=== PATIENT | male | born 1965 | race Caucasian/White ===

== ENCOUNTER 2019-03-07 08:00 | Inpatient (IN) | payer BC ==
[~2019-03-07] VITALS: Ht 172.7 cm; Wt 90.4 kg
[2019-03-07] MEDS ORDERED: DOXA1TAB41 PO (08:08)
[2019-03-07] MEDS ORDERED: FLUO20CA19 (08:08)
[2019-03-07] MEDS ORDERED: ALPR0.25 (08:08)
[2019-03-07] MEDS ORDERED: NS 1,000 ML IV SCH (08:18)
[2019-03-07] MEDS ORDERED: MORPHINE 4 MG/ML 1ML VIAL/SYRINGE (J2270) IV ONE ×3 (08:30→11:45)
[2019-03-07] MEDS ORDERED: ONDANSETRON 4MG/2ML VIAL (J2405) IV ONE ×2 (08:30→09:30)
[2019-03-07 08:38] LABS: BASO % 0.3 % (0.0-1.0); EOS # 0.1 10^3/uL (0.0-0.5); EOS % 0.8 % (0.0-3.0); HEMATOCRIT 44.6 % (42.0-52.0); HEMOGLOBIN 14.7 g/dl (13.5-17.5); LYMPH # 1.2 10^3/uL (1.5-5.0); LYMPH % 12.8 % (24.0-44.0); MEAN CORPUSCULAR HEMOGLOBIN 31.7 pg (27.0-33.0); MEAN CORPUSCULAR VOLUME 96.3 fl (80.0-96.0); MONO # 0.6 10^3/uL (0.0-0.8); MONO % 6.8 % (0.0-5.0); NEUTROPHILS # 7.2 10^3/uL (1.5-8.5); PLATELET COUNT, AUTOMATED 211 10^3/uL (150-450); RED BLOOD COUNT 4.63 10^6/uL (4.30-6.10); WHITE BLOOD COUNT 9.1 10^3/uL (4.0-10.0)
[2019-03-07] MEDS: GASTROGRAFIN SOLUTION 30ML PO SCH ×2 (09:22→09:47)
[2019-03-07 09:31] LABS: ALBUMIN 3.5 GM/DL (3.2-5.2); ALT/SGPT 21 U/L (12-78); BILIRUBIN,DIRECT 0.2 MG/DL (0.0-0.2); BLOOD UREA NITROGEN 14 MG/DL (7-18); CALCIUM LEVEL 8.6 MG/DL (8.5-10.1); CARBON DIOXIDE LEVEL 27 MEQ/L (21-32); CHLORIDE LEVEL 104 MEQ/L (98-107); CREATININE FOR GFR 0.99 MG/DL (0.70-1.30); GLOMERULAR FILTRATION RATE > 60.0 (>56); GLUCOSE, FASTING 123 MG/DL (70-100); LIPASE 87 U/L (73-393); POTASSIUM SERUM 3.7 MEQ/L (3.5-5.1); SODIUM LEVEL 139 MEQ/L (136-145); TOTAL PROTEIN 7.3 GM/DL (6.4-8.2)
[2019-03-07] MEDS ORDERED: ISOVUE-370 76% 100ML VIAL (Q9967) As Ordered ONE (10:17)
--- NOTE | 2019-03-07 11:13 | REP ---
CT ABDOMEN AND PELVIS WITH ORAL AND IV CONTRAST: TECHNIQUE: Axial contrast enhanced images from the lung bases to the pubic symphysis using 100 mL Isovue 370 intravenous contrast material with multiplanar reformations. COMPARISON: 02/11/2019 [facility]. Mild atelectatic changes are seen in the visualized lung bases. There is mild curvature of the thoracolumbar spine, convex to the right in the thoracic region and convex to the left in the lumbar region. The liver, spleen, adrenals, pancreas and kidneys appear unremarkable. There is no hydronephrosis. Gallbladder is grossly unremarkable. There is no abdominal aortic aneurysm. No adenopathy is seen. There is no free air. There is trace scattered free fluid. There is segmental thickening of the sigmoid colon. There is surrounding streaky inflammatory change. Findings are consistent with worsening sigmoid diverticulitis. The more proximal colon is moderately dilated containing air and fluid suggesting that the narrowed inflamed segment of the sigmoid is causing a partial obstruction. Small umbilical contains fat. Urinary bladder is very mildly distended and not well evaluated. There are degenerative changes of the spine. IMPRESSION: Sigmoid diverticulitis appears to have worsened compared to the prior CT 02/11/2019. No free air. Trace scattered free fluid. The colon is moderately dilated proximal to the thickened inflamed segment of sigmoid colon. Findings are compatible with likely partial obstruction at the level of the sigmoid colon. Followup CT or colonoscopy after treatment to insure that there is no underlying neoplastic pathology. Electronically Signed by Mehdi Ronquillo MD 03/08/2019 04:06 P
[2019-03-07] MEDS ORDERED: ERTAPENEM SODIUM 1 GM in NS MINI-BAG PLUS 50 ML IV ONE (11:30)
[2019-03-07] MEDS ORDERED: CENTTAB16 PO (11:45)
[2019-03-07] MEDS ORDERED: FLUO20CA19 PO (11:45)
[2019-03-07] MEDS ORDERED: DEXTROSE 50% 50 ML SYRINGE IV PRN (12:00)
[2019-03-07] MEDS ORDERED: GLUCAGON FOR INJ 1 MG VIAL (J1610) SC PRN (12:00)
[2019-03-07] MEDS ORDERED: NS 1,000 ML IV ONE ×2 (12:00→13:00)
[2019-03-07] MEDS ORDERED: GLUCOSE 4 GM CHEW TABLET PO PRN (12:00)
[2019-03-07 12:45] VITALS: BP 122/68
[2019-03-07] MEDS ORDERED: PERCOCET 5MG/325MG TAB PO PRN (12:45)
[2019-03-07 14:30] VITALS: BP 120/77
[2019-03-07] MEDS: D5W/0.45% SODIUM CHLORIDE 1,000 ML IV SCH ×2 (14:40→22:18)
[2019-03-07] MEDS: PIPERACILLIN/TAZOBACTAM SOD 4.5 GM in D5W MINI-BAG PLUS 50 ML IV SCH (17:47)
[2019-03-07] MEDS: PERCOCET 5MG/325MG TAB PO PRN ×2 (17:48→22:11)
[2019-03-07] MEDS: MORPHINE 4 MG/ML 1ML VIAL/SYRINGE (J2270) IV PRN (19:21)
[2019-03-07 22:00] VITALS: BP 124/78
[2019-03-08] MEDS: PIPERACILLIN/TAZOBACTAM SOD 4.5 GM in D5W MINI-BAG PLUS 50 ML IV SCH ×3 (02:18→17:54)
[2019-03-08] MEDS: PERCOCET 5MG/325MG TAB PO PRN ×4 (02:19→20:23)
[2019-03-08 06:00] VITALS: BP 114/77
[2019-03-08] MEDS: D5W/0.45% SODIUM CHLORIDE 1,000 ML IV SCH (07:15)
[2019-03-08 07:57] LABS: BASO % 0.2 % (0.0-1.0); EOS # 0.1 10^3/uL (0.0-0.5); EOS % 0.6 % (0.0-3.0); HEMATOCRIT 38.5 % (42.0-52.0); LYMPH # 0.7 10^3/uL (1.5-5.0); LYMPH % 7.3 % (24.0-44.0); MEAN CORPUSCULAR HEMOGLOBIN 31.3 pg (27.0-33.0); MEAN CORPUSCULAR HGB CONC 32.2 g/dl (32.0-36.5); MEAN CORPUSCULAR VOLUME 97.2 fl (80.0-96.0); MONO # 0.6 10^3/uL (0.0-0.8); MONO % 6.5 % (0.0-5.0); NEUTROPHILS % 85.1 % (36.0-66.0); PLATELET COUNT, AUTOMATED 198 10^3/uL (150-450); RED BLOOD COUNT 3.96 10^6/uL (4.30-6.10); WHITE BLOOD COUNT 9.4 10^3/uL (4.0-10.0)
[2019-03-08 08:10] LABS: HEMOGLOBIN 12.4 g/dl (13.5-17.5)
[2019-03-08 08:25] LABS: ALBUMIN 2.7 GM/DL (3.2-5.2); ALT/SGPT 13 U/L (12-78); BILIRUBIN,TOTAL 0.6 MG/DL (0.2-1.0); BLOOD UREA NITROGEN 12 MG/DL (7-18); CALCIUM LEVEL 7.8 MG/DL (8.5-10.1); CARBON DIOXIDE LEVEL 26 MEQ/L (21-32); CHLORIDE LEVEL 109 MEQ/L (98-107); CREATININE FOR GFR 0.85 MG/DL (0.70-1.30); GLOMERULAR FILTRATION RATE > 60.0 (>56); GLUCOSE, FASTING 147 MG/DL (70-100); POTASSIUM SERUM 3.3 MEQ/L (3.5-5.1); SODIUM LEVEL 140 MEQ/L (136-145); TOTAL PROTEIN 6.5 GM/DL (6.4-8.2)
[2019-03-08] MEDS ORDERED: ONDANSETRON 4MG/2ML VIAL (J2405) As Ordered ONE (09:43)
[2019-03-08] MEDS: FLUoxetine 20 MG CAP PO SCH (09:45)
[2019-03-08] MEDS: ONDANSETRON 4MG/2ML VIAL (J2405) IV SCH ×3 (09:45→22:12)
--- NOTE | 2019-03-08 10:03 | HPE ---
DATE OF ADMISSION: 03/07/2019 PRIMARY CARE PHYSICIAN: Rubin Pedroza MD CHIEF COMPLAINT: Abdominal pain, nausea without vomiting. HISTORY OF PRESENT ILLNESS: This is a 53-year-old male with a history of benign prostatic hypertrophy (BPH), impaired glucose, hypercholesterolemia, had abdominal pain six weeks ago, evaluated with a CT of the abdomen which showed early diverticulitis who was sent home with no antibiotics, presents today with a feeling of incomplete evacuation and no bowel movement since Thursday. The patient has had nausea, dry retching at home and abdominal pain described as very sharp and burning sensation around the belly button and bilateral lower quadrants left greater than the right, for the past few days since Thursday. The patient has been dry retching without fever, but complained of chills. Describes this as on and off, better when he lays on the right side, comes in waves and goes away. He has not taken Tylenol or NSAIDs for the pain. No bowel movement. Complains of some gurgling sensation and 8/10 pain when its the worst. The patient was able to keep food down despite nausea and has been eating applesauce, yogurt, turkey sandwich and chicken noodle soup for the past few days. He has tried Milk of Magnesia with no luck and even an enema at home. The patient presents with intractable pain, was found to have sigmoid diverticulitis, hospitalist was asked to admit. The patient has not had a colonoscopy in the past. Denies bright red blood per rectum, melena, black tarry stools, coffee ground emesis, no other issues at home. Denies any weight loss, fever, cough, shortness of breath, palpitations, lightheadedness, upper or lower extremity weakness, upper respiratory infections, nasal congestion, ear change or eye changes. PAST MEDICAL HISTORY: Impaired glucose tolerance. Enlarged prostate. Hypercholesterolemia. Early diverticulitis diagnosed six weeks ago. PAST SURGICAL HISTORY: None. ALLERGIES: No known drug allergies. SOCIAL HISTORY: Lives with a partner. Drinks white wine nightly. Denies any cigarette use. Has his mother and father living with him. He takes care of them. 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 FAMILY HISTORY: Father age 79 with diverticulitis, pacer and prostate issues. Mother age 77 with hip replacement, revision times two and complications of hip replacement that is ongoing. REVIEW OF SYSTEMS: As per HPI. 12 point system otherwise negative. PHYSICAL EXAMINATION: Temperature 97, pulse 94, respiratory rate 20, blood pressure 137/90, 97% on room air. Generally, patient is awake, alert oriented times three, answering questions appropriately. Anicteric sclera, no jaundice. Tongue is midline. Moist mucous membranes. No cervical lymphadenopathy, thyromegaly or jugular venous distention (JVD). Lungs are clear to auscultation. No wheezing, rales or rhonchi. Heart S1, S2 sinus rhythm. No murmurs, rubs or gallops Abdomen: Distended, tender in the bilateral lower quadrant, left greater than the right. No rebound or guarding. Hyperactive bowel sounds. Tympanitic on percussion. Extremities: No cyanosis, clubbing or pitting edema. LABORATORY DATA: White count 9.1, hemoglobin 14, hematocrit 44, platelet count 211, 79% neutrophils, Sodium 139, potassium 3.7, chloride 104, bicarb 27, BUN 14, creatinine 0.99, glucose of 123, total bilirubin 1, direct bilirubin 0.2, AST 16, ALT 21, alkaline phosphatase 55, albumin 3.5, lipase 87. CT of the abdomen and pelvis 03/07/2019 sigmoid diverticulitis, worsened compared to prior CT 02/11. No free air. Trace scattered free fluid. Colon is moderately dilated proximal to thick and inflamed segment of the sigmoid compatible with likely partial obstruction at the level of the sigmoid colon. Followup CT or colonoscopy after treatment to ensure there is no underlying neoplastic pathology. Segmental thickening of the sigmoid colon with streaking inflammatory change compatible with worsening sigmoid diverticulitis. ASSESSMENT/PLAN: This is a 53-year-old male who presented with sigmoid diverticulitis. Active issues are: 1. Sigmoid diverticulitis currently on intravenous Zosyn, nothing by mouth status and IV fluids. Hypoglycemic protocol and D5 half normal saline. May advance diet in the morning to clears and full liquids There are no signs of perforation, as in free air or abscess. Therefore, surgery will not be consulted. It has been explained to him however that he will need a colonoscopy once the acute inflammation has resolved within the next 2-3 weeks. 2. Impaired fasting glucose. Check A1c in the morning. Fasting lipid profile. 3. Deep vein thrombosis (DVT) prophylaxis with compression stockings.
--- NOTE | 2019-03-08 10:05 | IPN ---
DATE: 03/08/2019 PRIMARY CARE PROVIDER: [facility]. Mr. Salazar is seen while rounding for the hospitalist. He was admitted with diverticulitis. He had sudden increase of abdominal pain distention this morning. Said he felt "great" at 4 a.m. and then the pain abruptly distended and uncomfortable. He is nauseated with this. He does not have any urinary retention. He has not had a stool for 5 days. PHYSICAL EXAM: 114/77, afebrile. Heart rate of 65. Lungs: Clear. Heart: Regular rate and rhythm. Abdomen: Soft, distended. Bowel sounds are decreased. Diffusely tender. No costovertebral angle (CVA) tenderness. No peripheral edema. LABS: White count is 9.4, hemoglobin 12.4, platelets 198. Sodium 140, potassium 3.3, BUN 12, creatinine 0.8, glucose 147. CT from admission was reviewed. Apparently had one at [facility] 02/11/2019. Diverticulitis sigmoid region was worse on 03/07/2019 compared to the prior. Dilated colon proximal to the sigmoid consistent with partial obstruction. IMPRESSION: 1. Diverticulitis with suspected bowel obstruction. Planned Stat CT of the abdomen and pelvis has been ordered. IV Zofran has been ordered. IV fluids are going. Continue his Zosyn. Pending on results of my consult might end up needing a surgical consultation. Zofran has been ordered for nausea. 2. Hypokalemia. I have changed his IV fluids. Will offer some supplemental potassium. He is also hypoglycemic. I do not think he needs the dextrose.
[2019-03-08] MEDS: KCL 20MEQ IN 0.45NS 1000ML 1,000 ML IV SCH ×2 (10:33→17:28)
--- NOTE | 2019-03-08 11:04 | REP ---
CT ABDOMEN AND PELVIS WITHOUT CONTRAST: CT abdomen and pelvis performed without IV contrast. Sagittal and coronal reconstruction images are performed. Comparison made with prior studies of 03/07/2019. In the visualized lung bases there is mild atelectatic change with a small right effusion. There is increased distension of small and large bowel compared to the prior study, up to a segment of diffuse thickening of sigmoid colon most consistent with a segment of sigmoid diverticulitis. There is adjacent streaky inflammatory changes in the pericolonic fat. Findings suggest worsening degree of bowel obstruction at the level of the thickened sigmoid colon. Retained oral contrast is seen throughout the colon. No free air is seen. There is mild scattered free fluid. Liver, spleen, adrenals, pancreas, and kidneys are again grossly unremarkable. There is no hydronephrosis or adenopathy. Urinary bladder is mildly distended with contrast. IMPRESSION: Increased degree of bowel obstruction at the level of the thickened sigmoid colon as discussed in detail above. Mild scattered free fluid with no free air. Electronically Signed by Mehdi Ronquillo MD 03/08/2019 04:04 P
[2019-03-08] MEDS: MORPHINE 4 MG/ML 1ML VIAL/SYRINGE (J2270) IV PRN ×4 (11:28→21:22)
[2019-03-08 14:00] VITALS: BP 133/86
[2019-03-08 20:00] VITALS: BP 125/88
[2019-03-08] MEDS: KETOROLAC 30 MG/ML VIAL (J1885) IV SCH (21:00)
[2019-03-08] MEDS: PANTOPRAZOLE 40MG INJ (PROTONIX) (C9113) IV SCH (21:21)
--- NOTE | 2019-03-08 22:20 | CR ---
DATE OF CONSULTATION: 03/08/2019 REASON FOR CONSULTATION: Sigmoid colon obstruction. HISTORY OF THE PRESENT ILLNESS: The patient is a 53-year-old man who was admitted on 03/07/[address] Hendrix of the hospitalist service. The patient had presented to the emergency department at 8 o'clock in the morning on the . He reports that about 2 months ago he had developed some bowel habit changes with decreased bowel movements. He apparently had some abdominal discomfort develop with this, and he was seen and had a CT scan of the abdomen and pelvis obtained, which he reports that was interpreted as showing early diverticulitis. This scan was done at [facility]. His symptoms resolved without any treatment. The patient reports that his last bowel movement was on Friday, March 01, 2019. Since then, he had developed some the feeling of abdominal fullness with some nausea. He had some abdominal discomfort, which tended to come in waves as a crampy sensation. He had some retching and dry heaves develop. He had been eating some food despite his nausea. He had tried some milk of magnesia and prune juice and even an enema at home prior to presenting to the emergency department without any success. In the emergency department, he was found to have a somewhat distended abdomen with some tenderness in the lower quadrants. A CT scan of the abdomen and pelvis was obtained, which showed an appearance consistent with sigmoid diverticulitis with thickening of the sigmoid colon with some surrounding streaky inflammatory change. There was some moderate dilation of the colon. He was admitted to the hospital. He was initially placed on a nothing by mouth diet but was allowed some sips of liquids or ice chips. He was given oral pain medications as well as IV morphine. Today, he had complained of increasing abdominal distension with some pain. He had some nausea but no vomiting. A repeat CT scan was obtained, which showed increased distension of the small and large bowel. The contrast given orally for his study on the , which had been largely within the small bowel had all passed into the colon. There was no free air with a small amount of free fluid. I was asked to evaluate the patient regarding management of his apparent colonic obstruction. MEDICATIONS: The patient's usual medications include doxazosin 3 mg by mouth daily, fluoxetine 20 mg by mouth daily, and a daily Centrum Silver vitamin tablet. ALLERGIES: The patient denies any known drug allergies. SURGICAL HISTORY: Negative. MEDICAL HISTORY: The patient has been diagnosed with benign prostatic hyperplasia. He has a history of hypercholesterolemia. He has had some impairment of his glucose metabolism. SOCIAL HISTORY: The patient apparently lives with a partner. He has nightly wine, but denies any tobacco use. FAMILY HISTORY: The patient's father has had diverticulitis and cardiac issues, and the mother has had osteoarthritis with several joint replacement surgeries. REVIEW OF SYSTEMS: The patient denies any history of chest pain or palpitations or cardiac disease. He has no cough, wheezing or sputum production. He denies any dysuria or hematuria or renal stones. He has had no melena or hematochezia. He has never had a colonoscopy performed. He denies any significant bone or joint issues. He has had no history of deep vein thrombosis (DVT) or pulmonary embolus. PHYSICAL EXAMINATION: The patient is lying quietly on the hospital bed. His most recent vital signs show a temperature of 97.5. His pulse is 72, respirations of 20 and a blood pressure of 133/86. The patient is alert and oriented. He is not in obvious pain at this time. Skin: Is warm and dry. Sclerae are anicteric. Neck is supple without mass or bruit. Heart: Exam shows a regular rate and rhythm at about 70. The lungs are clear to auscultation bilaterally. The abdomen is quite distended. He has some tinkly bowel sounds, particularly across the upper quadrants with the lower quadrants being quieter. There is tympany to percussion across the upper abdomen. There is no tenderness to percussion. Palpation reveals the abdomen to be full and moderately firm but not rigid throughout. There is no evident umbilical or inguinal hernia. Extremities are without edema. He has intact radial and dorsalis pedis pulses. Laboratory studies show a white count of 9 at the time of admission with a repeat today of 9.4. Today's hemoglobin is 12 with a hematocrit of 38 and a platelet count of 198,000. His differential count today shows 85% neutrophils, 7% lymphocytes and 6% monocytes. Chemistry profile today showed a sodium of 140, potassium 3.3, chloride 109, CO2 of 26, BUN of 12, creatinine 0.8 and a glucose of 147. Liver function tests are normal. Yesterday he had a normal lipase of 87. Urinalysis yesterday was not suggestive of a urinary tract infection. IMAGING STUDIES: I reviewed both the patient's CT scans. Both scans show a segment of the sigmoid colon that appears to have a significantly thickened wall circumferentially. This segment is perhaps 10-12 cm in maximum length. There does seem to be some surrounding mild inflammatory change. He has a moderately distended air and fluid-filled colon all the way from his cecum to the level of his obstruction. The oral contrast given yesterday has now all distributed through his colon. There is also some mild distension with some air and fluid in the mid to distal small bowel. The stomach is empty on the most recent scan. There is no evidence of free air and no significant free fluid. IMPRESSION: 1. Sigmoid colon obstruction with colonic distension. 2. Hypercholesterolemia. 3. Impaired glucose tolerance. 4. Prostatic enlargement. RECOMMENDATIONS: It seems most likely that the patient's problem is related to an obstruction from diverticular disease. However, there are some slight inconsistencies, which leave me a little concerned that we still need at some point to rule out the possibility of an obstructing cancer. Primarily he has complained of changes in his bowel habits rather than abdominal pain as you would normally see in someone with acute diverticulitis. Also, his white blood cell count has not been significantly elevated. But for now if we assume that the obstruction is related to diverticulitis, it is reasonable to hope that this will improve with antibiotic therapy. He is on a broad-spectrum antibiotic with piperacillin-tazobactam. The patient should be kept nothing by mouth completely, and I have recommended to him that he have a nasogastric tube placed for the potential benefit of decreasing the amount of fluid and air that would continue to pass into his colon. I have ordered Protonix to reduce his gastric secretions. I will also order some Toradol routinely in hopes that this will allow him to take less morphine, which would tend to cause some degree of ileus on top of his obstruction. I have encouraged him to be up ambulatory, though he reports that this makes him more uncomfortable, and he is somewhat reluctant to be up and about more. I counseled him that if his colonic distension increases significantly that we will need to intervene to decompress his colon to prevent rupture. The patient appears to understand the situation. He is expressing some reluctance to have the nasogastric tube placed. At the time of this dictation, he was agreeable with the placement of the nasogastric tube. We will see how his condition progresses and hopefully he will have some return of flatus and bowel movements and will be able to decompress his colon spontaneously. JAMIE
[2019-03-09] MEDS: MORPHINE 4 MG/ML 1ML VIAL/SYRINGE (J2270) IV PRN ×2 (01:30→20:44)
[2019-03-09] MEDS: KCL 20MEQ IN 0.45NS 1000ML 1,000 ML IV SCH ×3 (01:42→14:49)
[2019-03-09] MEDS: PIPERACILLIN/TAZOBACTAM SOD 4.5 GM in D5W MINI-BAG PLUS 50 ML IV SCH ×3 (02:24→17:31)
[2019-03-09] MEDS: KETOROLAC 30 MG/ML VIAL (J1885) IV SCH ×4 (03:57→20:00)
[2019-03-09] MEDS: ONDANSETRON 4MG/2ML VIAL (J2405) IV SCH ×4 (03:57→22:00)
[2019-03-09 05:00] VITALS: BP 134/89
[2019-03-09 07:27] LABS: BASO % 0.2 % (0.0-1.0); EOS % 0.3 % (0.0-3.0); HEMATOCRIT 41.6 % (42.0-52.0); HEMOGLOBIN 13.5 g/dl (13.5-17.5); LYMPH % 10.6 % (24.0-44.0); MEAN CORPUSCULAR HEMOGLOBIN 31.7 pg (27.0-33.0); MEAN CORPUSCULAR HGB CONC 32.5 g/dl (32.0-36.5); MEAN CORPUSCULAR VOLUME 97.7 fl (80.0-96.0); MONO # 0.7 10^3/uL (0.0-0.8); MONO % 7.2 % (0.0-5.0); NEUTROPHILS # 7.7 10^3/uL (1.5-8.5); NEUTROPHILS % 81.5 % (36.0-66.0); PLATELET COUNT, AUTOMATED 212 10^3/uL (150-450); RED BLOOD COUNT 4.26 10^6/uL (4.30-6.10); WHITE BLOOD COUNT 9.4 10^3/uL (4.0-10.0)
[2019-03-09 07:52] LABS: ALBUMIN 2.8 GM/DL (3.2-5.2); ALT/SGPT 13 U/L (12-78); BILIRUBIN,TOTAL 0.6 MG/DL (0.2-1.0); BLOOD UREA NITROGEN 18 MG/DL (7-18); CARBON DIOXIDE LEVEL 26 MEQ/L (21-32); CHLORIDE LEVEL 107 MEQ/L (98-107); CREATININE FOR GFR 1.02 MG/DL (0.70-1.30); GLOMERULAR FILTRATION RATE > 60.0 (>56); GLUCOSE, FASTING 115 MG/DL (70-100); POTASSIUM SERUM 3.6 MEQ/L (3.5-5.1); SODIUM LEVEL 138 MEQ/L (136-145); TOTAL PROTEIN 6.8 GM/DL (6.4-8.2)
--- NOTE | 2019-03-09 08:17 | REP ---
Chest x-ray: Single view. History: NG tube placement. Findings: Nasogastric tube has been passed into good position terminating in the gastric fundus. Moderate right convex thoracic scoliosis is again seen. The lungs are exposed at a lesser level of inspiration on the current radiograph. Dilated colonic loops are noted in the upper abdomen. Impression: NG tube in good position. Electronically Signed by Fran Marr MD 03/09/2019 08:09 A
[2019-03-09] MEDS: PANTOPRAZOLE 40MG INJ (PROTONIX) (C9113) IV SCH (09:13)
[2019-03-09] MEDS: FLUoxetine 20 MG CAP PO SCH (09:15)
--- NOTE | 2019-03-09 09:18 | IPN ---
DATE: 03/09/2019 Mic feels markedly better. He had a nasogastric tube placed. This led to some decompression, still no flatus or stool. He was seen by Dr. Marie, appreciate his input. He is concerned about an obstructive cancer versus bowel obstruction from diverticulitis and is following him with us. PHYSICAL EXAMINATION: Vital signs stable, afebrile. Lungs clear. Heart regular rhythm. Abdomen soft, a little less distended than yesterday, but still significant distention. Bowel sounds are present. He is diffusely mildly tender, a little better than yesterday, but still quite tender. LABS: White count 9.4. Electrolytes unremarkable. IMPRESSION: 1. Large bowel obstruction from presumed diverticulitis. Continue with IV antibiotics, nasogastric suctioning and IV fluids. 2. Hypokalemia resolved with changing his IV fluids. 3. History of depression. Stable on his current regimen.
[2019-03-09 13:30] VITALS: BP 128/84
--- NOTE | 2019-03-09 18:02 | IPN ---
DATE: 03/09/2019 HISTORY: The patient was seen in consultation yesterday with a colonic obstruction at the sigmoid level, felt to be related to diverticular disease. He has not had a lot of evidence for a current infection, and so we still must be cautious about the possibility of a malignancy. A nasogastric tube was inserted last night. The patient reports that he feels much better this morning. The nasogastric (NG) tube has had some output. He has not yet passed any flatus or had any stool. Vital signs show that he has been afebrile overnight. His pulse is in the 70s, and his blood pressure is fine. Intake and output show that he had 1500 in yesterday with 600 of urine output recorded out. He had 100 mL in the NG drainage overnight, and there is about 200-300 mL in the canister currently. Physical exam shows that the patient looks fairly comfortable. The abdomen remains distended. Heart exam shows a rate of about 70 that is regular. The lungs are clear. The abdomen is quite protuberant. He does have some tinkly bowel sounds present, similar to last night. The abdomen is moderately firm but without significant tenderness to palpation. Laboratory studies this morning show a white count of 9, hemoglobin of 14, hematocrit 42, and a platelet count of 212,000. Differential count shows 82% neutrophils, 11% lymphocytes, and 7% monocytes. Chemistry profile shows normal electrolytes, BUN, and creatinine with a glucose of 115. Liver function tests are normal. IMPRESSION: The patient feels somewhat better this morning after placement of the NG tube last evening. The NG has not put out a lot of fluid. He has not yet passed any flatus or had any stool, and his abdomen remains quite distended, consistent with a persistent sigmoid colon obstruction. RECOMMENDATIONS: At this point, since he is feeling comfortable and continues to have some bowel sounds without any increase in tenderness, I would recommend that we continue to observe him in hopes that the antibiotics will lead to enough decrease in inflammation that his colon opens up and allows him to decompress. He should remain on his intravenous fluids and his Protonix and antibiotics. I will continue to follow him until we see whether he is going to get better on his own or will require surgery. JAMIE
[2019-03-09 19:59] VITALS: BP 127/80
[2019-03-10] MEDS: PIPERACILLIN/TAZOBACTAM SOD 4.5 GM in D5W MINI-BAG PLUS 50 ML IV SCH ×3 (01:50→17:04)
[2019-03-10] MEDS: KCL 20MEQ IN 0.45NS 1000ML 1,000 ML IV SCH ×4 (01:50→18:05)
[2019-03-10] MEDS: ONDANSETRON 4MG/2ML VIAL (J2405) IV SCH ×4 (03:39→23:31)
[2019-03-10] MEDS: KETOROLAC 30 MG/ML VIAL (J1885) IV SCH ×2 (03:40→09:36)
[2019-03-10 04:00] VITALS: BP 146/77
[2019-03-10 06:34] LABS: BASO % 0.3 % (0.0-1.0); EOS # 0.2 10^3/uL (0.0-0.5); EOS % 1.9 % (0.0-3.0); HEMATOCRIT 40.2 % (42.0-52.0); HEMOGLOBIN 13.1 g/dl (13.5-17.5); LYMPH % 10.9 % (24.0-44.0); MEAN CORPUSCULAR HEMOGLOBIN 31.7 pg (27.0-33.0); MEAN CORPUSCULAR HGB CONC 32.6 g/dl (32.0-36.5); MEAN CORPUSCULAR VOLUME 97.3 fl (80.0-96.0); MONO # 0.6 10^3/uL (0.0-0.8); MONO % 6.8 % (0.0-5.0); NEUTROPHILS % 79.9 % (36.0-66.0); PLATELET COUNT, AUTOMATED 214 10^3/uL (150-450); RED BLOOD COUNT 4.13 10^6/uL (4.30-6.10); WHITE BLOOD COUNT 8.8 10^3/uL (4.0-10.0)
[2019-03-10 07:04] LABS: ALBUMIN 2.8 GM/DL (3.2-5.2); ALT/SGPT 13 U/L (12-78); BILIRUBIN,TOTAL 0.9 MG/DL (0.2-1.0); BLOOD UREA NITROGEN 25 MG/DL (7-18); CALCIUM LEVEL 8.2 MG/DL (8.5-10.1); CARBON DIOXIDE LEVEL 25 MEQ/L (21-32); CHLORIDE LEVEL 105 MEQ/L (98-107); CREATININE FOR GFR 0.99 MG/DL (0.70-1.30); GLOMERULAR FILTRATION RATE > 60.0 (>56); GLUCOSE, FASTING 107 MG/DL (70-100); POTASSIUM SERUM 4.1 MEQ/L (3.5-5.1); SODIUM LEVEL 137 MEQ/L (136-145); TOTAL PROTEIN 6.6 GM/DL (6.4-8.2)
[2019-03-10] MEDS: FLUoxetine 20 MG CAP PO SCH (09:36)
[2019-03-10] MEDS: PANTOPRAZOLE 40MG INJ (PROTONIX) (C9113) IV SCH (09:36)
--- NOTE | 2019-03-10 09:44 | IPN ---
DATE: 03/10/2019 Mic is having some watery stool. He is still distended, still has pain. He had morphine overnight, is discouraged by his weakness and became dyspneic walking. PHYSICAL EXAM: 146/77, afebrile. Lungs clear. Decreased breath sounds bases. Heart regular rhythm. Abdomen is distended, firm. Bowel sounds are present. Unchanged from yesterday. IMPRESSION: 1. Diverticulitis with large bowel obstruction. Continue nasogastric suctioning. Surgery is consulted and following as well. He is having a little diarrhea, so perhaps things are starting to open up some. 2. Shortness of breath. Probably from diaphragmatic crowding from his abdominal distention. His hemoglobin is stable. Ordered incentive spirometry.
[2019-03-10] MEDS ORDERED: KETOROLAC 30 MG/ML VIAL (J1885) IV PRN (10:15)
[2019-03-10] MEDS: DOXAZOSIN MESYLATE 1 MG TAB PO SCH (12:26)
[2019-03-10] MEDS: MORPHINE 4 MG/ML 1ML VIAL/SYRINGE (J2270) IV PRN ×2 (12:47→18:06)
[2019-03-10 15:05] VITALS: BP 148/91
[2019-03-10 15:35] VITALS: BP 143/85
[2019-03-10 22:00] VITALS: BP 152/93
[2019-03-11] MEDS: KCL 20MEQ IN 0.45NS 1000ML 1,000 ML IV SCH ×3 (01:16→13:04)
[2019-03-11] MEDS: PIPERACILLIN/TAZOBACTAM SOD 4.5 GM in D5W MINI-BAG PLUS 50 ML IV SCH ×3 (01:42→17:59)
[2019-03-11] MEDS: MORPHINE 4 MG/ML 1ML VIAL/SYRINGE (J2270) IV PRN (01:43)
[2019-03-11 06:00] VITALS: BP 134/86
[2019-03-11 06:12] LABS: BASO % 0.5 % (0.0-1.0); EOS # 0.2 10^3/uL (0.0-0.5); HEMATOCRIT 37.8 % (42.0-52.0); HEMOGLOBIN 12.1 g/dl (13.5-17.5); LYMPH # 1.2 10^3/uL (1.5-5.0); LYMPH % 16.1 % (24.0-44.0); MEAN CORPUSCULAR HEMOGLOBIN 30.9 pg (27.0-33.0); MEAN CORPUSCULAR VOLUME 96.4 fl (80.0-96.0); MONO # 0.6 10^3/uL (0.0-0.8); MONO % 7.6 % (0.0-5.0); NEUTROPHILS # 5.5 10^3/uL (1.5-8.5); NEUTROPHILS % 72.4 % (36.0-66.0); PLATELET COUNT, AUTOMATED 211 10^3/uL (150-450); RED BLOOD COUNT 3.92 10^6/uL (4.30-6.10); WHITE BLOOD COUNT 7.6 10^3/uL (4.0-10.0)
[2019-03-11 06:36] LABS: ALBUMIN 2.5 GM/DL (3.2-5.2); ALT/SGPT 13 U/L (12-78); BILIRUBIN,TOTAL 0.8 MG/DL (0.2-1.0); BLOOD UREA NITROGEN 20 MG/DL (7-18); CALCIUM LEVEL 7.7 MG/DL (8.5-10.1); CARBON DIOXIDE LEVEL 21 MEQ/L (21-32); CHLORIDE LEVEL 109 MEQ/L (98-107); CREATININE FOR GFR 0.75 MG/DL (0.70-1.30); GLOMERULAR FILTRATION RATE > 60.0 (>56); GLUCOSE, FASTING 79 MG/DL (70-100); POTASSIUM SERUM 3.9 MEQ/L (3.5-5.1); SODIUM LEVEL 139 MEQ/L (136-145); TOTAL PROTEIN 6.4 GM/DL (6.4-8.2)
[2019-03-11] MEDS: ONDANSETRON 4MG/2ML VIAL (J2405) IV SCH ×3 (06:40→16:48)
[2019-03-11] MEDS: PANTOPRAZOLE 40MG INJ (PROTONIX) (C9113) IV SCH (09:17)
[2019-03-11] MEDS: FLUoxetine 20 MG CAP PO SCH (09:18)
[2019-03-11] MEDS: DOXAZOSIN MESYLATE 1 MG TAB PO SCH (09:18)
--- NOTE | 2019-03-11 11:06 | IPN ---
DATE: 03/11/2019 Mic is seen on [facility]. He is passing flatus and having more substance to the diarrhea that he is passing. He feels he is less distended and breathing easier. PHYSICAL EXAMINATION: Afebrile, vital signs stable. Lungs clear. Heart regular rhythm. Abdomen soft, distended, a little less distended, a little less tender. No peripheral edema. LABS: CBC, BMP unremarkable. IMPRESSION: 1. Large bowel obstruction from presumed diverticulitis. Continue nasogastric suctioning. Surgical consultation. Antibiotic therapy. He seems to be making some progress.
[2019-03-11] MEDS ORDERED: LIDOCAINE 1% MDV 20ML VIAL As Ordered ONE (12:33)
[2019-03-11 14:00] VITALS: BP 142/90
[2019-03-11] MEDS: ENOXAPARIN 40 MG/0.4 ML SYRINGE (J1650) SC SCH (16:49)
[2019-03-11] MEDS: SODIUM CHLORIDE 0.9% INJ 10 ML SYR IV SCH (17:59)
[2019-03-11] MEDS: HumaLOG INSULIN (NovoLOG) PER UNIT SC SCH (18:00)
[2019-03-11] MEDS ORDERED: FAT EMULSION IV 20% 500 ML IV SCH (18:00)
[2019-03-11] MEDS ORDERED: AMINO AC/ELECTROLYTE/DEX/CALC 2,000 ML IV SCH (18:00)
--- NOTE | 2019-03-11 21:10 | IPN ---
DATE: 03/10/2019 HISTORY: The patient was admitted on the with evidence for probable sigmoid diverticulitis with colonic obstruction. This became more pronounced on the , and I was consulted to evaluate him. He had become quite distended. A nasogastric tube was placed. The patient reports that this morning he had a loose bowel movement followed by another smaller one. He indicates he has not really passed any flatus yet. He remains quite distended. He has had no nausea or vomiting, and his nasogastric (NG) tube output has been actually relatively limited. Vital signs: Show that he has been afebrile for the past 24 hours. Pulse is in the 70s, and his blood pressure is borderline elevated into the upper 140s to lower 150s systolic. Intake and output show that yesterday he had 2400 in with 1000 out. He had 600 of NG output and 425 mL of urine recorded. PHYSICAL EXAMINATION: The patient is lying quietly on the hospital bed. He has the nasogastric tube in place with a minimal amount of light greenish fluid in the canister. Sclerae are anicteric. Heart exam shows a regular rhythm in the 70s. The lungs are clear anteriorly. The abdomen remains quite distended. He does have some bowel sounds present. There is still some tympany to percussion across the mid upper abdomen. The abdomen remains moderately firm. Laboratory studies today show a white count of 9, hemoglobin 13, hematocrit 40 and a platelet count of 214,000. Chemistries show a sodium of 137, potassium 4.1, chloride 105, CO2 of 25, BUN of 25, creatinine 0.99 and a glucose of 107. Liver function tests are normal. IMPRESSION: Patient has finally had some passage of liquid stool, and this is certainly reassuring. He has not passed any flatus and remains quite distended but is not having any significant abdominal pain other than some fullness. PLAN: The patient was encouraged to be up ambulating. I advised him that I would still give him another couple of days potentially to see if he will resolve his obstruction and decompress without the need for any sort of surgical intervention. We did discuss that if he does not improve soon, we would need to place a peripherally inserted central catheter (PICC) line to begin him on total parenteral nutrition. We will see how things go tonight and decide in the morning if a PICC line is required at that point. JAMIE
[2019-03-11 22:00] VITALS: BP 148/92
[2019-03-12] MEDS: ONDANSETRON 4MG/2ML VIAL (J2405) IV SCH ×5 (00:06→22:00)
[2019-03-12] MEDS: HumaLOG INSULIN (NovoLOG) PER UNIT SC SCH ×4 (00:07→17:31)
[2019-03-12] MEDS: PIPERACILLIN/TAZOBACTAM SOD 4.5 GM in D5W MINI-BAG PLUS 50 ML IV SCH ×3 (02:19→17:31)
[2019-03-12 06:00] VITALS: BP 148/89
[2019-03-12] MEDS: SODIUM CHLORIDE 0.9% INJ 10 ML SYR IV SCH ×2 (06:17→17:32)
--- NOTE | 2019-03-12 07:31 | IPN ---
DATE: 03/11/2019 HISTORY: The patient was first seen by me on March 08 with a sigmoid colon obstruction felt to be secondary to diverticulitis. A nasogastric (NG) tube was placed on the evening of the . The output has generally been fairly limited, although he did have 200 mL out so far today. Yesterday, he did have several liquid bowel movements as well as some flatus. He has remained quite distended, but is not having significant pain. Vital signs show that he has been afebrile over the past 24 hours. His pulse is in the mid 70s and his blood pressure has been acceptable. Intake and output shows that yesterday he had 1850 in with 950 out, 700 of that was urine with 250 of gastric drainage. He did have several bowel movements as noted. He has been voiding well. PHYSICAL EXAMINATION: Shows that the patient is lying quietly in the hospital bed. The nasogastric tube is in place with a small amount of light greenish fluid in the tubing and in the canister. Heart exam shows a regular rhythm and the lungs are clear. The abdomen is quite distended. He does have a few bowel sounds. The abdomen seems to be slightly less firm than it was yesterday at the time of this exam, though it remains quite distended and he has tympany to percussion fairly diffusely. The lower extremities are without any palpable edema. LABORATORY STUDIES: Today, show a white count of 8, hemoglobin 12, hematocrit 38 and a platelet count of 211,000. Differential count shows 72% neutrophils, 16% lymphocytes and 8% monocytes. Chemistry profile shows normal electrolytes with a BUN of 20, creatinine 0.75 and glucose of 79. Total protein is down to 6.4 with an albumin of 2.5. IMPRESSION: The patient remains with a colonic obstruction. He is still quite distended, though he has started to pass some liquid stool and some flatus. He may be a little less firmly distended than he was yesterday. He is not having any significant pain and there is no tenderness on palpation. His white count is remaining normal. PLAN: The patient will have a peripherally inserted central catheter (PICC) line inserted today and I will start him on total parenteral nutrition. I will cut his IV rate back to 75 mL an hour now and this can be stopped once the TPN is started later in the day. I will order a KUB for tomorrow just to assess the degree of distention of his bowel. I have spoken with Dr. 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 I explained to the patient that I would be on vacation and the Dr. Sanders would be assuming his care. I advised him that if he decompresses adequately then we may be able to avoid surgery, but if things do not improve soon it may be necessary to opt in favor of surgery with a colostomy. He appears to understand the situation for now. JAMIE
[2019-03-12] MEDS: ENOXAPARIN 40 MG/0.4 ML SYRINGE (J1650) SC SCH (08:21)
[2019-03-12] MEDS: PANTOPRAZOLE 40MG INJ (PROTONIX) (C9113) IV SCH (08:21)
[2019-03-12] MEDS: FLUoxetine 20 MG CAP PO SCH (08:23)
[2019-03-12] MEDS: DOXAZOSIN MESYLATE 1 MG TAB PO SCH (08:23)
[2019-03-12] MEDS: SODIUM CHLORIDE 0.9% INJ 10 ML SYR IV PRN (08:25)
--- NOTE | 2019-03-12 09:08 | REP ---
PICC line insertion under ultrasound guidance. The procedure was performed by FRANNIE Funez, under the direct supervision of Dr. Marr. The risks and benefits of the procedure were explained to the patient and informed consent was obtained both verbally and written. Directly prior to the start of the procedure, a formal timeout was completed in the procedure room. The right basilic vein was localized using ultrasound guidance. The skin was prepped and draped in the sterile fashion. 2 ml 1% lidocaine 10 mg/ml was used as a local anesthetic. Using ultrasound guidance the right basilic vein was cannulated and a 0.018 guidewire was inserted and advanced to the SVC using fluoroscopic guidance. The needle was removed and a 5.5 Lao dilator and peel-away sheath was inserted over the guidewire. A 5.5 Lao double lumen catheter was cut to the length of 35 cm. The dilator was removed and the catheter was inserted over the guide wire with the tip ending in the SVC. The peel-away sheath was removed and the catheter was flushed with heparinized saline as per hospital protocol. The catheter was affixed to the skin and a sterile dressing was applied. The patient tolerated the procedure well and there were no immediate complications. 0.2 minutes of fluoroscopy time was utilized for this procedure. Some fluoroscopic images are performed with last image hold technology. These images require no additional radiation. Reviewed by FRANNIE Machuca 03/11/2019 05:45 P Electronically Signed by Fran Marr MD 03/12/2019 09:01 A
--- NOTE | 2019-03-12 09:40 | IPN ---
DATE: 03/12/2019 Mic is frustrated. He does not feel like he is making any progress. He is passing some flatus and having diarrheal stools. He wants his nasogastric tube out. This is really only draining a small amount. He wants to know what surgical decisions have been made and he is frustrated over this. 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 PHYSICAL EXAMINATION: Vital signs stable. Afebrile. Abdomen is still distended about the same as yesterday. Bowel sounds are present. Lungs clear. Heart: Regular rhythm. LABS: He declined getting labs drawn today. IMPRESSION: Large bowel obstruction from presumed diverticulitis. The patient is frustrated with his progress. I indicated that at this point he is essentially a surgical patient and they are managing the nasogastric tube and TPN and decisions as far as surgery for the bowel obstruction. I have been in communication with Dr. Sanders who is rounding for surgery today and surgery will be seeing him. The rest of his medical problems are all stable.
--- NOTE | 2019-03-12 11:41 | REP ---
REASON: History of colon obstruction. There is mild to moderate gaseous distension of the colon. There is gas and stool in the rectosigmoid region. The tip of the nasogastric tube is seen in the stomach fundal region. The organ silhouettes are obscured. The osseous structures are within normal limits. IMPRESSION: As above. Electronically Signed by Mingo Kelley DO 03/12/2019 12:15 P
[2019-03-12] MEDS ORDERED: FLEET ENEMA PR ONE (12:00)
[2019-03-12 14:00] VITALS: BP 129/84
[2019-03-12] MEDS ORDERED: FAT EMULSION IV 20% 500 ML IV SCH (18:00)
[2019-03-12] MEDS ORDERED: AMINO AC/ELECTROLYTE/DEX/CALC 2,000 ML IV SCH (18:00)
[2019-03-12 22:00] VITALS: BP 142/90
[2019-03-13] MEDS: HumaLOG INSULIN (NovoLOG) PER UNIT SC SCH ×4 (00:34→17:18)
[2019-03-13] MEDS: PIPERACILLIN/TAZOBACTAM SOD 4.5 GM in D5W MINI-BAG PLUS 50 ML IV SCH ×3 (02:16→17:13)
[2019-03-13] MEDS: SODIUM CHLORIDE 0.9% INJ 10 ML SYR IV PRN (03:33)
[2019-03-13] MEDS: ONDANSETRON 4MG/2ML VIAL (J2405) IV SCH ×4 (03:38→21:05)
[2019-03-13 06:00] VITALS: BP 141/90
[2019-03-13] MEDS: SODIUM CHLORIDE 0.9% INJ 10 ML SYR IV SCH ×2 (06:08→17:13)
[2019-03-13 06:21] LABS: BASO % 0.4 % (0.0-1.0); EOS # 0.2 10^3/uL (0.0-0.5); EOS % 3.8 % (0.0-3.0); HEMATOCRIT 34.9 % (42.0-52.0); HEMOGLOBIN 11.8 g/dl (13.5-17.5); LYMPH # 0.8 10^3/uL (1.5-5.0); LYMPH % 14.6 % (24.0-44.0); MEAN CORPUSCULAR HEMOGLOBIN 31.9 pg (27.0-33.0); MEAN CORPUSCULAR HGB CONC 33.8 g/dl (32.0-36.5); MEAN CORPUSCULAR VOLUME 94.3 fl (80.0-96.0); MONO # 0.5 10^3/uL (0.0-0.8); MONO % 9.7 % (0.0-5.0); NEUTROPHILS # 3.9 10^3/uL (1.5-8.5); PLATELET COUNT, AUTOMATED 214 10^3/uL (150-450); WHITE BLOOD COUNT 5.5 10^3/uL (4.0-10.0)
[2019-03-13 07:03] LABS: ALBUMIN 2.6 GM/DL (3.2-5.2); ALT/SGPT 17 U/L (12-78); BILIRUBIN,TOTAL 0.6 MG/DL (0.2-1.0); BLOOD UREA NITROGEN 10 MG/DL (7-18); CALCIUM LEVEL 8.3 MG/DL (8.5-10.1); CARBON DIOXIDE LEVEL 27 MEQ/L (21-32); CHLORIDE LEVEL 108 MEQ/L (98-107); CREATININE FOR GFR 0.83 MG/DL (0.70-1.30); GLOMERULAR FILTRATION RATE > 60.0 (>56); GLUCOSE, FASTING 163 MG/DL (70-100); POTASSIUM SERUM 2.6 MEQ/L (3.5-5.1); SODIUM LEVEL 143 MEQ/L (136-145); TOTAL PROTEIN 6.3 GM/DL (6.4-8.2)
[2019-03-13] MEDS: KCL 10MEQ/100ML SWI (KRUN) 10 MEQ in IV 1 EA IV SCH ×6 (07:58→15:57)
[2019-03-13] MEDS: FLUoxetine 20 MG CAP PO SCH (09:00)
[2019-03-13] MEDS: PANTOPRAZOLE 40MG INJ (PROTONIX) (C9113) IV SCH (09:20)
[2019-03-13] MEDS: ENOXAPARIN 40 MG/0.4 ML SYRINGE (J1650) SC SCH (09:21)
[2019-03-13 09:23] VITALS: BP 142/91
[2019-03-13] MEDS: DOXAZOSIN MESYLATE 1 MG TAB PO SCH (09:23)
--- NOTE | 2019-03-13 10:53 | IPNPDOC ---
Text Note Date of Service The patient was seen on 03/13/19. NOTE I initially saw Mr. Salazar walking the hallway. He reports feeling more comfo rtable today and he is passing out some small smounts of solid stuff not just liquid, watery stool. Still feels distended but no longer nauseated. In the room he is pleasant and looks comfortable though his abdomen clearly still is distended. On exam, he is comfortable. He has an NGT in place which has not been putting out much the past two days. His lungs sounds clear to auscultation He has regular heart rate and regular rhythm His abdomen remains moderately distended but soft. He is nontender on palpation No extremity edema Impression/Plans colon obstruction at the level of sigmoid colon possibly diverticulitis/stricturing from chronic diverticulosis vs malignancy as he continues to improve, I will continue a daily fleets enema. Will set him up for barium enema tomorrow. D/C NGT I discussed with hm the different clinical scenarios which may need urgernt surgery keshawn if he does not fully recover including diversion (colostomy) resection and colostomy (Sesar) and single stage resection and anastomosis. This will all depend on his clinical improvement or nonimprovement. At this time he feels moderately better and feels he is continuing to get better so does not seem like he will need urgent decompression VS,Abundio, I+O VS, Abundio, I+O Laboratory Tests 03/13/19 05:52 Vital Signs Date Time Temp Pulse Resp B/P (MAP) Pulse Ox O2 Delivery O2 Flow Rate FiO2 03/13/19 09:23 142/91 03/13/19 06:00 98.4 84 18 98 03/12/19 14:00 Room Air I&O- Last 24 Hours up to 6 AM 03/13/19 05:59 Intake Total 620 ml Output Total 900 ml Balance -280 ml CHEYENNE DÍAZ MD Mar 13, 2019 10:53
--- NOTE | 2019-03-13 12:42 | IPN ---
DATE: 03/13/2019 I discussed Mic's case with Dr. Sanders yesterday. He agreed to transfer the patient to the surgical service. He has no medical issues we are currently following. The staff is unaware of this so they contacted me this morning for a potassium of 2.6. I ordered 6 potassium runs. He has followup lab work ordered for tomorrow.
[2019-03-13 14:00] VITALS: BP 145/95
[2019-03-13 14:56] LABS: POTASSIUM SERUM 2.8 MEQ/L (3.5-5.1)
[2019-03-13] MEDS ORDERED: POTASSIUM CHLORIDE IV SCH (18:00)
[2019-03-13] MEDS ORDERED: MAGNESIUM SULFATE IV SCH (18:00)
[2019-03-13] MEDS ORDERED: FAT EMULSION IV 20% 500 ML IV SCH (18:00)
[2019-03-13] MEDS ORDERED: [UNRECOGNIZED DRUG - OTHER] IV SCH (18:00)
[2019-03-13 22:00] VITALS: BP 131/87
[2019-03-14] MEDS: PIPERACILLIN/TAZOBACTAM SOD 4.5 GM in D5W MINI-BAG PLUS 50 ML IV SCH ×3 (01:46→17:50)
[2019-03-14] MEDS: SODIUM CHLORIDE 0.9% INJ 10 ML SYR IV SCH ×2 (05:04→17:51)
[2019-03-14] MEDS: ONDANSETRON 4MG/2ML VIAL (J2405) IV SCH ×4 (05:04→21:33)
[2019-03-14 06:00] VITALS: BP 142/90
[2019-03-14] MEDS: HumaLOG INSULIN (NovoLOG) PER UNIT SC SCH ×5 (06:08→23:57)
[2019-03-14 07:02] LABS: BASO % 0.4 % (0.0-1.0); EOS # 0.3 10^3/uL (0.0-0.5); EOS % 4.6 % (0.0-3.0); HEMATOCRIT 34.8 % (42.0-52.0); HEMOGLOBIN 11.7 g/dl (13.5-17.5); LYMPH % 17.6 % (24.0-44.0); MEAN CORPUSCULAR HEMOGLOBIN 31.5 pg (27.0-33.0); MEAN CORPUSCULAR HGB CONC 33.6 g/dl (32.0-36.5); MEAN CORPUSCULAR VOLUME 93.5 fl (80.0-96.0); MONO # 0.5 10^3/uL (0.0-0.8); MONO % 9.7 % (0.0-5.0); NEUTROPHILS # 3.7 10^3/uL (1.5-8.5); NEUTROPHILS % 67.1 % (36.0-66.0); PLATELET COUNT, AUTOMATED 223 10^3/uL (150-450); RED BLOOD COUNT 3.72 10^6/uL (4.30-6.10); WHITE BLOOD COUNT 5.5 10^3/uL (4.0-10.0)
[2019-03-14 07:32] LABS: ALBUMIN 2.7 GM/DL (3.2-5.2); ALT/SGPT 43 U/L (12-78); BILIRUBIN,TOTAL 0.4 MG/DL (0.2-1.0); BLOOD UREA NITROGEN 9 MG/DL (7-18); CALCIUM LEVEL 8.2 MG/DL (8.5-10.1); CARBON DIOXIDE LEVEL 29 MEQ/L (21-32); CHLORIDE LEVEL 107 MEQ/L (98-107); CREATININE FOR GFR 0.83 MG/DL (0.70-1.30); GLOMERULAR FILTRATION RATE > 60.0 (>56); GLUCOSE, FASTING 119 MG/DL (70-100); MAGNESIUM LEVEL 2.4 MG/DL (1.8-2.4); POTASSIUM SERUM 2.7 MEQ/L (3.5-5.1); SODIUM LEVEL 143 MEQ/L (136-145); TOTAL PROTEIN 6.7 GM/DL (6.4-8.2)
[2019-03-14] MEDS ORDERED: LIQUID POLIBAR PLUS 105% w/v 1900ML BTL As Ordered ONE (08:08)
[2019-03-14] MEDS: PANTOPRAZOLE 40MG INJ (PROTONIX) (C9113) IV SCH (10:04)
[2019-03-14] MEDS: FLUoxetine 20 MG CAP PO SCH (10:06)
[2019-03-14] MEDS: DOXAZOSIN MESYLATE 1 MG TAB PO SCH (10:06)
[2019-03-14] MEDS: ENOXAPARIN 40 MG/0.4 ML SYRINGE (J1650) SC SCH (10:07)
[2019-03-14] MEDS: KCL 10MEQ/100ML SWI (KRUN) 10 MEQ in IV 1 EA IV SCH ×3 (10:07→11:43)
[2019-03-14] MEDS: FLEET ENEMA PR SCH (10:13)
[2019-03-14] MEDS ORDERED: KCL 10MEQ/100ML SWI (KRUN) 10 MEQ in IV 1 EA IV SCH (11:00)
[2019-03-14] MEDS: POTASSIUM CHLORIDE 10 MEQ SR TABLET PO SCH ×2 (11:14→20:48)
[2019-03-14] MEDS ORDERED: KCL 10MEQ/100ML SWI (KRUN) 10 MEQ in IV 1 EA IV ONE (12:30)
--- NOTE | 2019-03-14 13:03 | IPN ---
DATE: 03/14/2019 Mic has been transferred to the surgical service, but the nursing staff still called with hypokalemia. Potassium is 2.7. So, I ordered more potassium runs and asked them to followup with surgery on this.
[2019-03-14 14:00] VITALS: BP 133/90
[2019-03-14] MEDS ORDERED: FAT EMULSION IV 20% 500 ML IV SCH (18:00)
[2019-03-14] MEDS ORDERED: MULTIVITAMIN -ADULT INJECTION 10 ML, CR/CU/SE/MN/ZN INJ 1 ML, POTASSIUM CHLORIDE INJ 40... IV SCH ×4 (18:00)
[2019-03-14 22:00] VITALS: BP 130/91
[2019-03-15] MEDS: PIPERACILLIN/TAZOBACTAM SOD 4.5 GM in D5W MINI-BAG PLUS 50 ML IV SCH ×3 (01:59→17:35)
[2019-03-15] MEDS: ONDANSETRON 4MG/2ML VIAL (J2405) IV SCH ×4 (04:00→21:26)
[2019-03-15 06:00] VITALS: BP 132/89
[2019-03-15] MEDS: HumaLOG INSULIN (NovoLOG) PER UNIT SC SCH ×2 (06:26→12:37)
[2019-03-15] MEDS: SODIUM CHLORIDE 0.9% INJ 10 ML SYR IV SCH ×2 (06:27→17:35)
[2019-03-15] MEDS: FLEET ENEMA PR SCH (09:00)
[2019-03-15 09:08] LABS: BLOOD UREA NITROGEN 12 MG/DL (7-18); CALCIUM LEVEL 8.2 MG/DL (8.5-10.1); CARBON DIOXIDE LEVEL 27 MEQ/L (21-32); CHLORIDE LEVEL 108 MEQ/L (98-107); CREATININE FOR GFR 0.86 MG/DL (0.70-1.30); GLOMERULAR FILTRATION RATE > 60.0 (>56); GLUCOSE, FASTING 120 MG/DL (70-100); POTASSIUM SERUM 3.4 MEQ/L (3.5-5.1); SODIUM LEVEL 142 MEQ/L (136-145)
[2019-03-15] MEDS: PANTOPRAZOLE 40MG INJ (PROTONIX) (C9113) IV SCH (09:44)
[2019-03-15] MEDS: DOXAZOSIN MESYLATE 1 MG TAB PO SCH (09:44)
[2019-03-15] MEDS: ENOXAPARIN 40 MG/0.4 ML SYRINGE (J1650) SC SCH (09:44)
[2019-03-15] MEDS: FLUoxetine 20 MG CAP PO SCH (09:45)
[2019-03-15] MEDS: POTASSIUM CHLORIDE 10 MEQ SR TABLET PO SCH ×2 (09:45→21:25)
[2019-03-15] MEDS: MIRALAX *UNIT DOSE* 17GM PACKET PO SCH ×2 (12:37→21:25)
[2019-03-15 14:00] VITALS: BP 135/82
[2019-03-15 22:00] VITALS: BP 133/83
[2019-03-16] MEDS: PIPERACILLIN/TAZOBACTAM SOD 4.5 GM in D5W MINI-BAG PLUS 50 ML IV SCH ×2 (01:25→08:52)
[2019-03-16] MEDS: ONDANSETRON 4MG/2ML VIAL (J2405) IV SCH ×2 (04:00→09:21)
[2019-03-16] MEDS: SODIUM CHLORIDE 0.9% INJ 10 ML SYR IV SCH (05:42)
[2019-03-16 06:00] VITALS: BP 129/81
[2019-03-16 06:54] LABS: BLOOD UREA NITROGEN 13 MG/DL (7-18); CALCIUM LEVEL 8.3 MG/DL (8.5-10.1); CARBON DIOXIDE LEVEL 25 MEQ/L (21-32); CHLORIDE LEVEL 110 MEQ/L (98-107); CREATININE FOR GFR 0.89 MG/DL (0.70-1.30); GLOMERULAR FILTRATION RATE > 60.0 (>56); GLUCOSE, FASTING 96 MG/DL (70-100); POTASSIUM SERUM 3.6 MEQ/L (3.5-5.1); SODIUM LEVEL 142 MEQ/L (136-145)
[2019-03-16] MEDS: MIRALAX *UNIT DOSE* 17GM PACKET PO SCH (08:51)
[2019-03-16] MEDS: FLUoxetine 20 MG CAP PO SCH (08:51)
[2019-03-16] MEDS: DOXAZOSIN MESYLATE 1 MG TAB PO SCH (08:51)
[2019-03-16] MEDS: ENOXAPARIN 40 MG/0.4 ML SYRINGE (J1650) SC SCH (08:51)
[2019-03-16] MEDS: POTASSIUM CHLORIDE 10 MEQ SR TABLET PO SCH (08:51)
[2019-03-16] MEDS: PANTOPRAZOLE 40MG INJ (PROTONIX) (C9113) IV SCH (08:52)
[2019-03-16] MEDS ORDERED: PEG1POW PO (10:32)
[2019-03-16] MEDS ORDERED: MIRALAX *UNIT DOSE* 17GM PACKET PO ONE (12:00)
--- NOTE | 2019-03-17 13:07 | REP ---
Examination Requested: Limited single contrast barium enema Reason For Exam: Sigmoid colon obstruction The procedure was performed by FRANNIE Funez, under the direct supervision of Dr. Hester. The images were reviewed with Dr. Hester. The pumper brewery film shows no organomegaly, or pathological masses. The intestinal gas pattern is unremarkable. Liquid barium was instilled into the colon and retrograde flow. of the barium air mixture. The colon is normal in position and contour. There is a short segment of mid/distal sigmoid colon that demonstrates mucosal irregularities with submucosal thickening. Colonoscopy is recommended. Impression: 1. There is a short segment of mid/distal sigmoid colon that demonstrates mucosal irregularities with submucosal thickening. Colonoscopy is recommended. 0.9 minutes of fluoroscopy time was utilized for this procedure. Some fluoroscopic images are performed with last image hold technology. These images require no additional radiation. Reviewed by FRANNIE Machuca 03/14/2019 05:47 P Electronically Signed by Mark Hester MD 03/17/2019 12:59 P
== END 2019-03-16 11:57 | disposition home or self-care (01) | DRG 244 ==
LOC: M ED 08:00 → M ED INP 11:51 → M MS4PR 12:45 → M MSPAV 03-10 15:02
PROVIDERS: ADMIT General Practice; ATTEND Surgery
PROC: 02HV33Z Insertion of Infusion Device into Superior Vena Cava, Percutaneous Approach (ICD-10-PCS; principal; 2019-03-11 13:30)
DX: K57.32 Diverticulitis of large intestine without perforation or abscess without bleeding (principal); K56.600 Partial intestinal obstruction, unspecified as to cause; E87.6 Hypokalemia; N40.0 Benign prostatic hyperplasia without lower urinary tract symptoms; E78.00 Pure hypercholesterolemia, unspecified; E74.39 Other disorders of intestinal carbohydrate absorption; F32.9 Major depressive disorder, single episode, unspecified

== ENCOUNTER 2019-04-06 09:29 | Day surgery (SDC) | payer BC ==
[~2019-04-06] VITALS: Ht 172.7 cm; Wt 75.7 kg
[~2019-04-06 09:29] MED LIST: ALPR0.25; CENTTAB16 PO; DOXA1TAB41 PO; FLUO20CA19; FLUO20CA19 PO; NS 1,000 ML IV ONE; PEG1POW PO
[2019-04-06] MEDS ORDERED: propofoL 500 MG/50 ML VIAL As Ordered ONE (10:47)
[2019-04-06] MEDS ORDERED: LIDOCAINE 2% INJ 100 MG/5 ML SDV (FOR ANES.) As Ordered ONE (10:47)
--- NOTE | 2019-04-06 11:41 | ROOR ---
Patient Name: Mic Salazar Procedure Date: 04/06/2019 10:45 AM Date of : 1965 Age: 53 Room: [facility] Gender: Male Note Status: Finalized Procedure: Colonoscopy Indications: Abnormal barium enema, Abnormal CT of the GI tract, Obstipation Providers: Hayes Sanders MD Referring MD: TORIBIO SANDRA MD Requesting Provider: Medicines: Monitored Anesthesia Care Complications: No immediate complications. Procedure: Pre-Anesthesia Assessment: - Prior to the procedure, a History and Physical was performed, and patient medications and allergies were reviewed. The patient is competent. The risks and benefits of the procedure and the sedation options and risks were discussed with the patient. All questions were answered and informed consent was obtained. Patient identification and proposed procedure were verified by the physician, the nurse and the anesthesiologist in the endoscopy suite. Mental Status Examination: alert and oriented. Airway Examination: normal oropharyngeal airway and neck mobility. Respiratory Examination: clear to auscultation. CV Examination: normal. Prophylactic Antibiotics: The patient does not require prophylactic antibiotics. Prior Anticoagulants: The patient has taken no previous anticoagulant or antiplatelet agents. ASA Grade Assessment: II - A patient with mild systemic disease. After reviewing the risks and benefits, the patient was deemed in satisfactory condition to undergo the procedure. The anesthesia plan was to use monitored anesthesia care (MAC). Immediately prior to administration of medications, the patient was re-assessed for adequacy to receive sedatives. The heart rate, respiratory rate, oxygen saturations, blood pressure, adequacy of pulmonary ventilation, and response to care were monitored throughout the procedure. The physical status of the patient was re-assessed after the procedure. The Colonoscope was introduced through the anus and advanced to the cecum, identified by appendiceal orifice and ileocecal valve. The colonoscopy was performed without difficulty. The patient tolerated the procedure well. The quality of the bowel preparation was good. Findings: The perianal and digital rectal examinations were normal. Three sessile polyps were found in the recto-sigmoid colon, descending colon and cecum. The polyps were 5 to 7 mm in size. These polyps were removed with a hot snare. Resection and retrieval were complete. Estimated blood loss was minimal. A localized area of mildly erythematous mucosa was found in the sigmoid colon. This was biopsied with a cold forceps for histology. Roughly 1 cm area of circumferential narrowing at distal sigmoid (20 cms from anal verge) with chronic swelling, mild chronic erythema. No active infection seen. No associated diverticulosis/diverticulitis, no separate masses Estimated blood loss was minimal. Area was successfully injected with 2 mL Malissa ink for tattooing. Estimated blood loss was minimal. The retroflexed view of the distal rectum and anal verge was normal and showed no anal or rectal abnormalities. Impression: - Three 5 to 7 mm polyps at the recto-sigmoid colon, in the descending colon and in the cecum, removed with a hot snare. Resected and retrieved. - Erythematous mucosa in the sigmoid colon. Biopsied. Injected. - The distal rectum and anal verge are normal on retroflexion view. Recommendation: - Discharge patient to home (ambulatory). - Return to my office in 1 week. Hayes Sanders MD Hayes Sanders MD 04/06/2019 11:41:12 AM Electronically signed by Hayes Sanders MD Number of Addenda: 0 Note Initiated On: 04/06/2019 10:45 AM Estimated Blood Loss: Estimated blood loss was minimal.
[2019-04-06 11:52] VITALS: BP 122/88
== END 2019-04-06 12:08 | disposition home or self-care (01) ==
LOC: M OPP 09:29
PROVIDERS: ATTEND Surgery
DX: D12.7 Benign neoplasm of rectosigmoid junction (principal); D12.4 Benign neoplasm of descending colon; D12.0 Benign neoplasm of cecum; K63.89 Other specified diseases of intestine; R93.3 Abnormal findings on diagnostic imaging of other parts of digestive tract; K59.00 Constipation, unspecified; K56.690 Other partial intestinal obstruction; Z91.018 Allergy to other foods

== ENCOUNTER → 2020-09-28 | Outpatient (CLI) | payer BC ==
[~2020-09-28] MED LIST changes: -FLUO20CA19; -FLUO20CA19 PO; +FLUO20CA22; +FLUO20CA22 PO; +GASTROGRAFIN SOLUTION 30ML (Q9963) ONE; +ISOVUE-370 76% 100ML VIAL ONE; -NS 1,000 ML IV ONE; -PEG1POW PO; +POLY17PO18 PO
--- NOTE | 2020-09-28 10:20 | REP ---
INDICATION: OTH PARTIAL INTESTINAL OBSTRUCTION. COMPARISON: 03/08/2019 a noncontrast enhanced examination and 03/07/2019 a contrast-enhanced examination TECHNIQUE: Standard helical technique after the intravenous administration of 100 cc Isovue 370 and oral bowel preparatory contrast administration. FINDINGS: There is no significant change in appearance of the lung bases. The liver, gallbladder, spleen, pancreas, adrenal glands, and kidneys are within normal limits. The abdominal aorta and para-aortic regions are within normal limits. There is no free fluid or free air. There is an approximately 6 cm in length segment of sigmoid colon luminal narrowing without mian concomitant fatty infiltration of the surrounding mesentery. The sigmoid colon distal to this is nearly devoid of content while the sigmoid colon just proximal to this has increased content. There is no pelvic adenopathy. Bone window technique throughout the examination shows no significant change in appearance of the imaged osseous structures. IMPRESSION: Changes in the sigmoid colon as described above. The finding likely represents chronic diverticular scarring or postinflammatory scarring, however, this needs to be followed up and correlated clinically to rule out the possibility of neoplastic change. <Electronically signed by Mingo Kelley > 09/28/20 [id number]
== END ==
LOC: M PLAIMG 08:04
PROVIDERS: ATTEND Surgery
DX: K56.690 Other partial intestinal obstruction (principal)
CPT/HCPCS: 74177; Q9963; Q9967

== ENCOUNTER → 2020-09-28 | Outpatient (CLI) | payer BC ==
[~2020-09-28] MED LIST changes: +ALPR0.25 PO; +FLUO10CA18 PO; -GASTROGRAFIN SOLUTION 30ML (Q9963) ONE; +HYDR-3713 PO; -ISOVUE-370 76% 100ML VIAL ONE; +META1POW PO
[2020-09-28 08:20] LABS: HEMOGLOBIN 14.2 g/dl (13.5-17.5); MEAN CORPUSCULAR HEMOGLOBIN 31.6 pg (27.0-33.0); MEAN CORPUSCULAR HGB CONC 32.3 g/dl (32.0-36.5); MEAN CORPUSCULAR VOLUME 97.8 fl (80.0-96.0); PLATELET COUNT, AUTOMATED 178 10^3/uL (150-450); WHITE BLOOD COUNT 5.8 10^3/uL (4.0-10.0)
[2020-09-28 08:47] LABS: HEMOGLOBIN A1c 5.6 %
[2020-09-28 08:55] LABS: ALBUMIN 3.6 GM/DL (3.2-5.2); ALT/SGPT 27 U/L (12-78); BILIRUBIN,TOTAL 0.6 MG/DL (0.2-1.0); BLOOD UREA NITROGEN 16 MG/DL (7-18); CALCIUM LEVEL 8.5 MG/DL (8.5-10.1); CARBON DIOXIDE LEVEL 28 MEQ/L (21-32); CHLORIDE LEVEL 107 MEQ/L (98-107); CHOLESTEROL LEVEL 207 MG/DL (<200); CHOLESTEROL RISK RATIO 3.763 (<5); CREATININE FOR GFR 0.92 MG/DL (0.70-1.30); GLOMERULAR FILTRATION RATE > 60.0 (>56); GLUCOSE, FASTING 95 MG/DL (70-100); HDL CHOLESTEROL 55 MG/DL (>40); LDL CHOLESTEROL 133 MG/DL (<100); NON-HDL-C 152 MG/DL; POTASSIUM SERUM 4.4 MEQ/L (3.5-5.1); PROSTATIC SPECIFIC AG MONITOR 3.04 NG/ML (< 4.00); SODIUM LEVEL 141 MEQ/L (136-145); TOTAL PROTEIN 6.9 GM/DL (6.4-8.2); TRIGLYCERIDES LEVEL 93 MG/DL (<150)
[2020-09-28 09:08] LABS: TESTOSTERONE 531 NG/DL (241-827)
== END ==
LOC: M LAB 07:28
PROVIDERS: ATTEND Family Medicine
DX: R53.83 Other fatigue (principal); E03.9 Hypothyroidism, unspecified; D64.9 Anemia, unspecified

== ENCOUNTER → 2020-10-22 | Outpatient (CLI) | payer BC ==
[~2020-10-22] MED LIST changes: +FLUO10CA16 PO; -FLUO10CA18 PO; -HYDR-3713 PO; -META1POW PO
--- NOTE | 2020-10-22 17:03 | ECGEPIP ---
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
--- NOTE | 2020-10-22 17:22 | REP ---
INDICATION: HTN, ANEMIA/ EKG 1ST, X-RAY 2ND. COMPARISON: Portable chest, 03/08/2019. TECHNIQUE: Upright PA and lateral images of the chest were obtained. FINDINGS: The lungs are clear. The heart borders, mediastinum and pulmonary vascular pattern are normal. The upper abdominal bowel gas pattern is normal. There is severe dextroscoliosis of the thoracic spine. IMPRESSION: 1. No evidence of acute cardiopulmonary pathology. 2. Severe dextroscoliosis, not significantly changed. <Electronically signed by Zack Jung > 10/22/20 [id number]
== END ==
LOC: M EKG 15:16
PROVIDERS: ATTEND Family Medicine
DX: I45.10 Unspecified right bundle-branch block (principal); I49.9 Cardiac arrhythmia, unspecified; M41.34 Thoracogenic scoliosis, thoracic region; I10 Essential (primary) hypertension; D64.9 Anemia, unspecified

== ENCOUNTER → 2020-10-31 | Outpatient (CLI) | payer BC | LOC: M LABSMTC 11:21 | PROVIDERS: ATTEND Anesthesiology | DX: Z01.812 Encounter for preprocedural laboratory examination (principal); Z11.52 Encounter for screening for COVID-19 ==

== ENCOUNTER 2020-11-05 08:21 | Inpatient (IN) | payer BC ==
[~2020-11-05] VITALS: Ht 172.7 cm; Wt 78.0 kg
[2020-11-05] VITALS (8 sets, daily range): BP systolic 92–104; BP diastolic 54–66
[~2020-11-05 08:21] MED LIST changes: +ALVIMOPAN 12 MG CAPSULE (ENTEREG) PO ONE; +CelecoXIB 400 MG CAP PO ONE; +EMLA CREAM 5GM TUBE (LIDOCAINE/PRILOCAINE) TOP PRN; +HEPARIN SOD (PORCINE) 5000UNITS/ML 1ML VIAL/SYRINGE SQ ONE; +LIDOCAINE 1% MDV 20ML VIAL SQ PRN; +LR 1,000 ML IV ONE; +cefoTEtan DISODIUM 2 GM in D5W MINI-BAG PLUS 50 ML IV ONE; +metroNIDAZOLE 500 MG in IV 1 EA IV ONE
[2020-11-05] MEDS ORDERED: MIDAZOLAM INJ 2MG/2ML VIAL (J2250 PER 1MG) As Ordered ONE (09:11)
[2020-11-05] MEDS ORDERED: fentaNYL 100 MCG/2 ML INJECTION (J3010) As Ordered ONE (09:12)
[2020-11-05] MEDS ORDERED: LIDOCAINE 2% 100MG/5ML SDV (FOR ANES.) As Ordered ONE (09:13)
[2020-11-05] MEDS ORDERED: LIDOCAINE 1% SDV 30ML VIAL As Ordered ONE (09:46)
[2020-11-05] MEDS ORDERED: BUPIVACAINE HCL 0.25% 10ML VIAL As Ordered ONE (09:46)
[2020-11-05] MEDS ORDERED: BUPIVACAINE HCL 0.25% 30ML VIAL As Ordered ONE (09:46)
[2020-11-05] MEDS ORDERED: BUPIVACAINE LIPOSOME/PF 1.3% 20ML VIAL (13.3MG/ML)(EXPAREL)(C9290 PER1MG) As Ordered ONE (09:47)
[2020-11-05] MEDS ORDERED: ACETAMINOPHEN 1000MG 100ML IV BTL (OFIRMEV) (J0131 PER 10MG) As Ordered ONE (10:54)
[2020-11-05] MEDS ORDERED: dexameTHASONE 4 MG/ML 1ML VIAL (J1100 PER 1MG) As Ordered ONE (10:54)
[2020-11-05] MEDS ORDERED: METOCLOPRAMIDE INJ 10MG/2ML VIAL (J2765 PER 1) As Ordered ONE (10:54)
[2020-11-05] MEDS ORDERED: ONDANSETRON 4MG/2ML VIAL As Ordered ONE (10:54)
[2020-11-05] MEDS ORDERED: propofoL 200 MG/20 ML VIAL As Ordered ONE ×2 (10:58→11:10)
[2020-11-05] MEDS ORDERED: SUGAMMADEX SODIUM 500 MG/5 ML VIAL (BRIDION) As Ordered ONE (10:59)
[2020-11-05] MEDS ORDERED: HYDROmorphone HCL 2 MG/ML 1ML VIAL (J1170) As Ordered ONE (11:00)
[2020-11-05] MEDS ORDERED: ROCURONIUM BROMIDE 50 MG/5 ML VIAL As Ordered ONE (11:09)
[2020-11-05] MEDS ORDERED: GLYCOPYRROLATE INJ 0.2 MG/ML 2 ML VIAL As Ordered ONE (11:12)
[2020-11-05] MEDS ORDERED: GLUCAGON INJ 1MG VIAL As Ordered ONE (12:00)
[2020-11-05] MEDS ORDERED: ACETAMINOPHEN TAB 650MG DOSE (2X325MG) PO PRN (13:45)
[2020-11-05] MEDS ORDERED: PERCOCET 5MG/325MG TAB PO PRN ×3 (13:45→14:10)
[2020-11-05] MEDS ORDERED: MORPHINE 2 MG/ML 1ML VIAL (J2270) IV PRN (13:45)
[2020-11-05] MEDS ORDERED: ONDANSETRON 4MG/2ML VIAL IV PRN ×2 (13:45→14:10)
[2020-11-05] MEDS ORDERED: fentaNYL 100 MCG/2 ML INJECTION (J3010) IV PRN (14:10)
[2020-11-05] MEDS ORDERED: LR 1,000 ML IV SCH (14:10)
[2020-11-05] MEDS ORDERED: LACTATED RINGER'S 500 ML IV ONE ×3 (14:10→14:55)
[2020-11-05] MEDS ORDERED: METOCLOPRAMIDE INJ 10MG/2ML VIAL (J2765 PER 1) IV PRN (14:10)
--- NOTE | 2020-11-05 14:17 | ROOPDOC ---
[facility] Report Of Operation Report of Operation DATE OF PROCEDURE: 11/05/20 PREPROCEDURE DIAGNOSES: sigmoid colon stricture/diverticular stricture. POSTPROCEDURE DIAGNOSES: sigmoid colon stricture/diverticular stricture. PROCEDURE PERFORMED: . Robotic assisted laparoscopic sigmoid colectomy with proctocolic anastomosis SURGEON: Hayes Sanders MD, STAVE PLANER TENDER: Bruce Marie MD helped me with the extraction of the specimen transrectally, performing the proctocolic anastomosis, and performing the flexible sigmoidoscopy to evaluate the anastomosis ANESTHESIA: General endotracheal anesthesia. ESTIMATED BLOOD LOSS: Approximately 30 mL. COMPLICATIONS: None. REMARKS: Patient is a 55-year-old male who has had intermittent bouts of obstipation and at one point was admitted in the hospital with severe obstipation and nearly required a colostomy. Work-up reveals a segment of stricture along the sigmoid colon. I performed a colonoscopy and was able to go through the stricture and biopsy only reveals chronic inflammation most likely secondary to chronic diverticulitis. This was marked with Malissa ink at the distal portion. FINDINGS: Localized area of wall thickening of the sigmoid colon located at the mid sigmoid. Healthy and pliable rectum and likewise healthy and pliable area at the descending colon. SPECIMENS REMOVED: Sigmoid colon DESCRIPTION OF PROCEDURE: Patient underwent mechanical and antibiotic prep the night before. He received a dose of cefazolin 2 g IV as well as metronidazole 500 mg IV. The cefazolin was redosed every 4 hours during the surgery. He received a dose of heparin 5000 units subcutaneously for DVT prophylaxis as well as Celebrex 200 mg by mouth and Entereg 20 mg by mouth. He was brought to the operating room, placed initially supine on the table. Compression boots and TEDs placed on both lower extremities were DVT prophylaxis. Gen. endotracheal anesthesia started. She was placed on a lithotomy position on stirrups with the pressure points padded. Both arms tucked. A graves catheter is placed for urine output monitoring. He was prepped and draped in the usual sterile fashion. We paused for a surgical timeout using both pre-incision safety checklist to verify correct patient, procedure site and additional clinical information prior to beginning the procedure. I entered the abdomen through the left upper quadrant, slightly towards the midline. A small incision created. The Veress needle was inserted in a controlled fashion. Proper placement confirmed with saline drop technique. CO2 insufflation and started to pressure of 15 mmHg. Insufflation looks to be unifo rm. Under laparoscopic guidance an 8 mm robotic port was placed under direct vision of a 5 mm laparoscope.. The area underneath the insertion site was inspected for injury and none was found. On entry, no abdominal wall adhesions noted, small bowel freely moving. The sigmoid colon appears bulky at the mid sigmoid with some small amount of omental adhesions. The pelvis and rectum is visible and pliable. A previously placed tattoo which looks to be at the proximal rectum is noted. He was then placed on a 20 Trendelenburg position tilted towards the right. I then placed my ports in an oblique fashion from the initial left upper quadrant and 3 towards the right anterior superior iliac spine. A 12 mm port was placed about 2 cm medial and superior to the anterior superior iliac spine. An 8 mm port was placed just to the right of the umbilicus and in between the left upper quadrant port and the umbilical port and 8 mm port was placed. A 5 mm port was placed in between the camera port and the 12 mm port for my assistant credit manager. A transversus abdominis plane block was performed on both sides using a mixture of Exparel, 1 4% Marcaine and 20 cc of normal saline under laparoscopic guidance. The robotic tower was then positioned in place with the patient's left side and the arms docked to the trochars. The robotic instruments were then placed under direct vision in the abdomen. I then proceeded to the surgeon console while my assistant credit manager state on the field for adjustment as well as retraction of bowels. A more thorough look of the sigmoid colon shows bulkiness at the mid-sigmoid level. There were some small amounts of adhesion of omentum as well as that of the bowel over to the lateral abdominal wall. There is no evidence of any active diverticulitis. He has only few diverticulosis. The junction between the sigmoid and descending colon seems to be healthy and pliable. The mesentery does not look thickened or shortened. There are no noticeable abscess collections. No pelvic space seems to be adequate and not overly narrowed. The previous tattoo is noted. The rectum distal to the tattoo is healthy and pliable. The omental attachments to the colon was freed up. The omentum was then retracted towards the upper quadrant. The bowels were retracted away from the pelvis towards the right side of the abdomen and tucked away with cottonoid strips. Lateral attachments of the sigmoid and descending colon to the abdominal wall was freed up along the white line of Toldt. I began by lateral to medial dissection to free up the descending colon. I then turned my attention to try to get to the proximal rectum. The right medial peritoneal attachments of the rectum was opened up to partially enter the TME plane. I then proceeded retrogradely .Likewise by tenting the sigmoid colon the course of the superior rectal artery was delineated. The peritoneum was opened up at the sacral promontory going proximally. I dissected underneath the course of the superior rectal artery to get me started. Once I was able to identify the left ureter, its position was protected with a cottonoid strip. As this was more of a benign stricture I decided to leave the superior rectal artery. I dissected above the superior rectal artery leaving it in place. The rectum was dissected past the tattoo broussard. I then chose my distal area of transection just past the tattoo eleni where the rectum seems to be healthy and soft. The mesentery underneath this was divided with the vessel sealer to create my posterior window. Using this as my starting point the mesentery of the sigmoid colon was divided above the course of the superior rectal artery with division of the sigmoidal branches as we go along coming superiorly. I proceeded with division of the mesentery proximally past the bulky portion of the mid sigmoid towards the junction of the descending colon and sigmoid colon. The retroperitoneal attachments of the descending colon mesentery was freed up mindful of the course of the ureter which is protected with cottonoid. I continued freeing up the lateral and retroperitoneal attachments of the descending colon up to about the level of the splenic flexure. I evaluated the length of the descending colon and this seems to be adequate enough to reach down to the rectum without a need to release fully the splenic flexure. At this point I chose my proximal and distal area of transection. I instructed anesthesia to give the patient 1 mg of glucagon and 5 cc of ICG intravenously followed with a 10 mL flush. Under firefly the ischemic and healthy portion of the colon was marked for transection. The remnants of the sigmoid colon mesentery was divided with the LigaSure device to that previously chosen point to clear the bowel wall. The sigmoid colon was then transected with the LigaSure device and cold cut at the antimesenteric wall and with the energy at the mesenteric side. In a similar manner the left over fatty appendages and mesentery at the chosen point in the rectum was cleared and the rectum was divided with the vessel sealer. The specimen was then taken out of the pelvis. At this point I asked Dr. Marie for assistance. He came in and proceeded with the transrectal portion of the surgery. He dilated the anal canal and rectum sequentially with a 29 mm EEA sizer and then with a 33 mm EEA sizer. He passed an Michael wound retractor through the rectum and the specimen was extracted transrectally without difficulty. The wound retractor was removed. The anvil of the 29 mm EEA stapler was then passed through the rectum and placed intra-abdominally. The shaft of the stapler was temporarily pulled back to allow closure of the rectal stump. I placed silk stay sutures at the edges of the rectum and stapled closed the rectal stump with 2 firings of a 45 mm sure form stapler with a green load. I then turned my attention towards the opening of the descending colon end. A pursestring suture using a 2 OV lock 9 inch suture was made. The anvil was placed intraluminally. The V-Loc suture was cinched to secure the anvil. The fatty appendages along where the staple line will be was thinned out with hot scissors. The course of the descending colon was checked. The spike of the stapler was then deployed anterior to the staple line. The anvil and the shaft of the stapler was then assembled. I again asked anesthesia to give the patient 5 cc of ICG to check for the perfusion in both ends and this is noted to be adequately perfusing. The course of the descending colon was checked. As well as the presence of any tension. The stapler was enabled, removed and the rakel stomotic donuts were checked and noted to be intact in both ends. Dr. Marie then proceeded with a flexible sigmoidoscopy. The anastomosis was checked under water for good seal and no bubbling noted. Intraluminally the staple line was checked for adequacy as well as for bleeding or bruising and none was found. The sigmoidoscope was then removed and the colon deflated. The pelvis was irrigated and the irrigant suctioned off. A survey of the abdomen was done and the cottonoids that were previously placed were removed as well as the detached fatty appendages, omentum as well as the staple line from the rectal stump. At this point I scrubbed back in. The robotic instruments were removed. The robotic arms undocked and the tower removed from the field. We switched to the 5 mm laparoscope to close the 12 mm fascial wound with a Melvin Santamaria device with a 1 Vicryl suture. 2 passes of the suture were made in an interrupted fashion. The left over Exparel was then infiltrated around the port sites. The abdomen was then deflated. All ports were removed. All skin incisions closed with 4-0 Monocryl in subcuticular fashion. Dermabond was then used for dressing. Patient tolerated the procedure well. He was promptly awakened, extubated and brought to recovery room in stable condition. HAYES SANDERS MD Nov 05, 2020 14:17
[2020-11-05] MEDS: LR 1,000 ML IV SCH (17:56)
[2020-11-05] MEDS: KETOROLAC 30 MG/ML 1ML VIAL IV SCH ×2 (17:56→23:43)
[2020-11-05] MEDS: ALVIMOPAN 12 MG CAPSULE (ENTEREG) PO SCH (20:55)
[2020-11-05] MEDS: FLUoxetine 20 MG CAP PO SCH (20:55)
[2020-11-05] MEDS: DOXAZOSIN MESYLATE 1 MG TAB PO SCH (20:55)
[2020-11-06] MEDS: LR 1,000 ML IV SCH ×2 (00:33→11:05)
[2020-11-06 02:00] VITALS: BP 90/52
[2020-11-06 06:00] VITALS: BP 105/63
[2020-11-06] MEDS: KETOROLAC 30 MG/ML 1ML VIAL IV SCH ×4 (06:07→23:00)
[2020-11-06 07:02] LABS: BASO % 0.1 % (0.0-1.0); EOS % 0.1 % (0.0-3.0); HEMATOCRIT 37.3 % (42.0-52.0); HEMOGLOBIN 12.3 g/dl (13.5-17.5); LYMPH # 0.9 10^3/uL (1.5-5.0); LYMPH % 7.9 % (24.0-44.0); MEAN CORPUSCULAR HEMOGLOBIN 32.1 pg (27.0-33.0); MEAN CORPUSCULAR VOLUME 97.4 fl (80.0-96.0); MONO # 0.7 10^3/uL (0.0-0.8); MONO % 6.1 % (2.0-8.0); NEUTROPHILS # 9.8 10^3/uL (1.5-8.5); NEUTROPHILS % 85.2 % (36.0-66.0); PLATELET COUNT, AUTOMATED 180 10^3/uL (150-450); RED BLOOD COUNT 3.83 10^6/uL (4.30-6.10); WHITE BLOOD COUNT 11.5 10^3/uL (4.0-10.0)
[2020-11-06 07:26] LABS: BLOOD UREA NITROGEN 10 MG/DL (7-18); CALCIUM LEVEL 7.6 MG/DL (8.5-10.1); CARBON DIOXIDE LEVEL 25 MEQ/L (21-32); CHLORIDE LEVEL 110 MEQ/L (98-107); CREATININE FOR GFR 0.84 MG/DL (0.70-1.30); GLOMERULAR FILTRATION RATE > 60.0 (>56); GLUCOSE, FASTING 109 MG/DL (70-100); POTASSIUM SERUM 3.8 MEQ/L (3.5-5.1); SODIUM LEVEL 140 MEQ/L (136-145)
[2020-11-06] MEDS: ALVIMOPAN 12 MG CAPSULE (ENTEREG) PO SCH ×2 (08:32→21:23)
[2020-11-06] MEDS: FLUoxetine 20 MG CAP PO SCH ×2 (08:32→21:23)
[2020-11-06] MEDS: DOXAZOSIN MESYLATE 1 MG TAB PO SCH ×2 (08:32→21:23)
[2020-11-06] MEDS: PANTOPRAZOLE 40MG VIAL (C9113 PER 1) IV SCH (08:33)
[2020-11-06] MEDS: ENOXAPARIN 40MG/0.4ML SYRINGE (J1650 PER 10MG) SC SCH (08:33)
--- NOTE | 2020-11-06 09:10 | IPNPDOC ---
Text Note Date of Service The patient was seen on 11/06/20. NOTE General surgery. Dr. Sanders The patient is a 55-year-old male status post robotic assisted laparoscopic sigmoid colectomy as per Dr. Sanders 11/05/2020 secondary to sigmoid diverticular stricture. The patient states pain is controlled. Has been up out of bed to the bathroom. Tolerating clear liquids. Afebrile VSS MMM Lungs clear to auscultation S1-S2 regular rate rhythm Abdomen is soft, mild tenderness around surgical sites, surgical sites are clean/dry/intact, still with some distention. No edema WBC 11.5, hemoglobin 12.3 Pathology pending Assessment/plan Status post robotic assisted laparoscopic sigmoid colectomy as per Dr. Sanders 11/05/2020 secondary to sigmoid diverticular stricture. The patient is reviewed and examined as per Dr. Sanders this morning. Plan to continue with IV fluids until later today then discontinue as long as the patient has good urine output. ROXANNE Duarte this morning. Advance to soft diet DVT prophylaxis. Lovenox VS,Fishbone, I+O VS, Fishbone, I+O Laboratory Tests 11/06/20 06:15 Vital Signs Date Time Temp Pulse Resp B/P (MAP) Pulse Ox O2 Delivery O2 Flow Rate FiO2 11/06/20 08:32 105/63 11/06/20 06:00 97.6 65 16 97 Room Air 11/05/20 22:00 2.0 I&O- Last 24 Hours up to 6 AM 11/06/20 05:59 Intake Total 4530 ml Output Total 1130 ml Balance 3400 ml Shawanda Encarnacion Nov 06, 2020 09:10
[2020-11-06 10:00] VITALS: BP 107/58
[2020-11-06 14:00] VITALS: BP 102/60
[2020-11-06 18:00] VITALS: BP 111/66
[2020-11-06 22:00] VITALS: BP 108/63
[2020-11-07 02:00] VITALS: BP 109/65
[2020-11-07] MEDS: KETOROLAC 30 MG/ML 1ML VIAL IV SCH ×2 (05:00→10:53)
[2020-11-07 06:00] VITALS: BP 110/68
[2020-11-07 06:58] LABS: BASO % 0.3 % (0.0-1.0); EOS # 0.1 10^3/uL (0.0-0.5); EOS % 1.3 % (0.0-3.0); HEMATOCRIT 36.8 % (42.0-52.0); HEMOGLOBIN 12.1 g/dl (13.5-17.5); LYMPH # 1.1 10^3/uL (1.5-5.0); LYMPH % 16.3 % (24.0-44.0); MEAN CORPUSCULAR HEMOGLOBIN 31.8 pg (27.0-33.0); MEAN CORPUSCULAR HGB CONC 32.9 g/dl (32.0-36.5); MEAN CORPUSCULAR VOLUME 96.6 fl (80.0-96.0); MONO # 0.5 10^3/uL (0.0-0.8); MONO % 6.7 % (2.0-8.0); NEUTROPHILS # 5.3 10^3/uL (1.5-8.5); NEUTROPHILS % 75.1 % (36.0-66.0); PLATELET COUNT, AUTOMATED 163 10^3/uL (150-450); RED BLOOD COUNT 3.81 10^6/uL (4.30-6.10)
[2020-11-07 07:23] LABS: BLOOD UREA NITROGEN 7 MG/DL (7-18); CALCIUM LEVEL 7.8 MG/DL (8.5-10.1); CARBON DIOXIDE LEVEL 29 MEQ/L (21-32); CHLORIDE LEVEL 110 MEQ/L (98-107); GLOMERULAR FILTRATION RATE > 60.0 (>56); GLUCOSE, FASTING 99 MG/DL (70-100); POTASSIUM SERUM 3.8 MEQ/L (3.5-5.1); SODIUM LEVEL 144 MEQ/L (136-145)
[2020-11-07 07:54] VITALS: BP 110/68
[2020-11-07] MEDS: ALVIMOPAN 12 MG CAPSULE (ENTEREG) PO SCH (07:54)
[2020-11-07] MEDS: FLUoxetine 20 MG CAP PO SCH (07:54)
[2020-11-07] MEDS: DOXAZOSIN MESYLATE 1 MG TAB PO SCH (07:54)
[2020-11-07] MEDS: PANTOPRAZOLE 40MG VIAL (C9113 PER 1) IV SCH (07:55)
[2020-11-07] MEDS: ENOXAPARIN 40MG/0.4ML SYRINGE (J1650 PER 10MG) SC SCH (07:55)
[2020-11-07] MEDS ORDERED: META1POW PO (08:38)
[2020-11-07] MEDS ORDERED: HYDR-3713 PO (08:38)
[2020-11-07] MEDS ORDERED: METAMUCIL (PSYLLIUM) PACKET PO SCH (09:00)
[2020-11-07 10:00] VITALS: BP 118/72
--- NOTE | 2020-11-07 13:36 | DS.PDOC ---
Discharge Summary General Date of Admission Nov 05, 2020 at 08:21 Date of Discharge 11/07/20 Discharge Summary Gen. surgery. Dr. Sanders PROCEDURES PERFORMED DURING STAY: [None]. ADMITTING DIAGNOSES: Sigmoid diverticular stricture. BPH Anxiety Depression DISCHARGE DIAGNOSES: Status post robotic assisted laparoscopic sigmoid colectomy as per Dr. Sanders 11/05/2020 secondary to sigmoid diverticular stricture. BPH Anxiety Depression HISTORY OF PRESENT ILLNESS: The patient is a 55-year-old male with history of short segment stricture in the sigmoid colon secondary to chronic diverticulitis. HOSPITAL COURSE: The patient is a 55-year-old male with history of short segment stricture in the sigmoid colon secondary to chronic diverticulitis. Status post robotic assisted laparoscopic sigmoid colectomy as per Dr. Sanders 11/05/2020. Postoperatively, the patient has recovered well. By postoperative day #1 fully catheter was discontinued. The patient was advanced to soft diet. The patient was noted to have good urine output and IV fluids were discontinued. Pain has been well controlled. The patient has been up out of bed. Pathology indicates diverticulosis and focal diverticulitis, negative for malignancy. Labs on the morning of 11/07/20 indicated white blood cell count 7.0, hemoglobin 12.1. The patient had 6 bowel movements 11/06, 1 bowel movement on the morning of discharge. Metamucil was added to the patient's regimen. The patient was felt stable for discharge with recommendation to continue with Metamucil and high fiber diet. DISCHARGE MEDICATIONS: Please see below. ALLERGIES: Please see below. PHYSICAL EXAMINATION ON DISCHARGE: VITAL SIGNS: Please see below. GENERAL: No acute distress HEENT: MMM CARDIOVASCULAR EXAMINATION: S1-S2 regular rate and rhythm RESPIRATORY EXAMINATION: Clear to auscultation bilaterally ABDOMINAL EXAMINATION: Surgical incisions are clean, dry, intact. No drainage. Abdomen is soft, nontender, nondistended EXTREMITIES: No edema IMAGING: No new imaging DISCHARGE PLAN: Discharge home DISPOSITION: 01 Home, Self-Care. DISCHARGE INSTRUCTIONS: Discharge home Activity as tolerated, no heavy pushing, pulling, lifting greater than 20 pounds High-fiber diet Continue to keep incisions clean and dry. Okay to shower. No baths or swimming. Hydrocodone 5/325 one tablet every 6 hours as needed, #15, I stop reference #[id number] Call the office with any questions or concerns, drainage from wound, fevers, chills or increasing pain. DISCHARGE CONDITION: Stable. TIME SPENT ON DISCHARGE: Greater than 30 minutes. Vital Signs/I&Os Vital Signs Date Time Temp Pulse Resp B/P (MAP) Pulse Ox O2 Delivery O2 Flow Rate FiO2 11/07/20 10:00 98.3 96 17 118/72 (87) 94 Room Air 11/06/20 10:10 2.0 I&O- Last 24 Hours up to 6 AM 11/07/20 06:00 Intake Total 2310 ml Output Total 500 ml Balance 1810 ml Laboratory Data Labs 24H Item Value Date Time White Blood Count 7.0 10^3/uL 11/07/20626 Red Blood Count 3.81 10^6/uL L 11/07/20626 Hemoglobin 12.1 g/dl L 11/07/20626 Hematocrit 36.8 % L 11/07/20626 Mean Corpuscular Volume 96.6 fl H 11/07/20626 Mean Corpuscular Hemoglobin 31.8 pg 11/07/20626 Mean Corpuscular Hemoglobin Concent 32.9 g/dl 11/07/20626 Red Cell Distribution Width 13.2 % 11/07/20626 Platelet Count 163 10^3/uL 11/07/20626 Sodium Level 144 MEQ/L 11/07/20626 Potassium Level 3.8 MEQ/L 11/07/20626 Chloride Level 110 MEQ/L H 11/07/20626 Carbon Dioxide Level 29 MEQ/L 11/07/20626 Anion Gap 5 MEQ/L L 11/07/20626 Blood Urea Nitrogen 7 MG/DL 11/07/20626 Creatinine 0.80 MG/DL 11/07/20626 Glomerular Filtration Rate > 60.0 11/07/20626 Fasting Glucose 99 MG/DL 11/07/20626 Calcium Level 7.8 MG/DL L 11/07/20626 Laboratory Tests 2 11/07/20 06:27: Immature Granulocyte % (Auto) 0.3, Neutrophils (%) (Auto) 75.1H, Lymphocytes (%) (Auto) 16.3L, Monocytes (%) (Auto) 6.7, Eosinophils (%) (Auto) 1.3, Basophils (%) (Auto) 0.3, Neutrophils # (Auto) 5.3, Lymphocytes # (Auto) 1.1L, Monocytes # (Auto) 0.5, Eosinophils # (Auto) 0.1, Basophils # (Auto) 0.0, Nucleated Red Blood Cells % (auto) 0.0, Anion Gap 5L, Glomerular Filtration Rate > 60.0, C alcium Level 7.8L CBC/BMP Laboratory Tests 11/07/20 06:27 Discharge Medications Scheduled Doxazosin Mesylate (Doxazosin Mesylate) 2 Mg Tablet, 2 MG PO BID, (Reported) Fluoxetine Hcl (Fluoxetine HCl) 20 Mg Capsule, 20 MG PO BID, (Reported) Multivit-Min/FA/Lycopen/Lutein (Centrum Silver Ultra Men's Tab) 1 Each Tablet, 1 TAB PO DAILY, (Reported) Psyllium Husk/Aspartame (Metamucil Fiber Singles Packet) 3.4 Gm Powd.pack, 1 PKT PO DAILY Scheduled PRN Hydrocodone/Acetaminophen (Hydrocodone-Acetamin 5-325 mg) 1 Each Tablet, 1 TAB PO Q6HP PRN for PAIN MDD 4 Allergies Coded Allergies: cabbage (Verified Adverse Reaction, Unknown, 03/30/19) TIGHTNESS NASAL PASSAGE Shawanda Encarnacion Nov 07, 2020 13:36
== END 2020-11-07 11:11 | disposition home or self-care (01) | DRG 221 ==
LOC: M OR 08:21 → M MSPAV 16:15
PROVIDERS: ADMIT Surgery; ATTEND Surgery
PROC: 8E0W4CZ Robotic Assisted Procedure of Trunk Region, Percutaneous Endoscopic Approach (ICD-10-PCS; 2020-11-05)
PROC: 0DTN4ZZ Resection of Sigmoid Colon, Percutaneous Endoscopic Approach (ICD-10-PCS; principal; 2020-11-05 10:00)
DX: K56.609 Unspecified intestinal obstruction, unspecified as to partial versus complete obstruction (principal); F32.9 Major depressive disorder, single episode, unspecified; K57.30 Diverticulosis of large intestine without perforation or abscess without bleeding; Z79.899 Other long term (current) drug therapy; N40.0 Benign prostatic hyperplasia without lower urinary tract symptoms; F41.9 Anxiety disorder, unspecified